=== PATIENT | male | born 1985 | race Caucasian/White ===

== ENCOUNTER 2016-09-30 15:37 | Emergency (ER) | payer OTHER ==
[~2016-09-30 15:37] MED LIST: CLON0.5T PO; FLUO20CA9 PO; GABA300C3 PO; HYDR-4274 PO; LEXA1TAB2 PO; XANA0.25 PO; XANA0.5T PO
[2016-09-30] MEDS ORDERED: MORPHINE 10 MG/ML 1ML VIAL As Ordered ONE (17:00)
--- NOTE | 2016-09-30 17:08 | REP ---
Left hand four views: There is soft tissue edema over the dorsum. There is no fracture or dislocation. No calcifications or foreign bodies. Signed by José Luis Gary MD 09/30/2016 04:59 P
--- NOTE | 2016-09-30 18:00 | EDDOCDS ---
Physician Documentation [facility] Name: Abraham Spencer Age: 31 yrs Sex: Male : 1985 Arrival Date: 09/30/2016 Time: 15:37 Bed I8 / 16 Private MD: Disposition: 09/30/16 17:43 Discharged to Home/Self Care. Impression: Crushing injury of hand - left, Contusion of left hand. - Condition is Stable. - Discharge Instructions: Elastic Bandage and RICE, Hand Contusion, Crush Injury, Fingers or Toes. - Prescriptions for oxycodone 5 mg Oral Tablet - take 1 tablet by ORAL route every 4 hours As needed MDD: 6 tabs; 20 tablet. - Medication Reconciliation, Local Pharmacy Hours form. - Follow up: Your own Physician; When: 1 week; Reason: Recheck today's complaints, Continuance of care, If not improving. - Problem is new. - Symptoms have improved. Historical: - Allergies: no known allergies; - Home Meds: 1. clonazepam 0.5 mg Oral tab 1 tab 2 times per day 2. Prozac 40 mg Oral cap 1 cap once daily 3. Tylenol 325 mg Oral tab 1 tab every 4 hours (Last dose: 09/30/2016 14:00) - PMHx: Anxiety; Cleft Palate; collapsed lung; Depression; Seizure Disorder; - PSHx: Chest Tube- Left; cleft palate repair; - Social history: Smoking status: Patient uses tobacco products, heavy tobacco smoker. No barriers to communication noted, The patient speaks fluent Nepali, Speaks appropriately for age. - Family history: Not pertinent. - : The pt / caregiver states he / she is not on anticoagulants. Home medication list is obtained from the patient. - Exposure Risk Screening:: None identified. Vital Signs: 09/30 15:42 BP 143 / 77; Pulse 98; Resp 16; Temp 98.9; Pulse Ox 99% ; Weight 68.04 kg / 150 lbs; elp Height 5 ft. 1 in. (154.94 cm); 17:23 BP 122 / 73; Pulse 92; Resp 18; Temp 98.0; Pulse Ox 98% ; Pain 8/10; jam1 15:42 Body Mass Index 28.34 (68.04 kg, 154.94 cm) el MDM: 16:46 morphine 5 mg IM once ordered. le 16:49 Hand, Complete Ordered. EDMS 17:48 Financial registration complete. ks16 17:54 Mac Wrap ordered. jc4 Administered Medications: 17:04 Drug: morphine 5 mg [morphine 10 mg/mL injection solution (0.5 mL)] Route: IM; Site: ck1 right deltoid; Signatures: Dispatcher [employer] EDAZ Courtney Hearn RN RN ck1 Josy Dumont, CONCRETE LABORER CONCRETE LABORER Anna Valentine RN RN hs1 April Perez RN RN jc4 Catherine Shelton, Reg Reg ks16 MTDD
--- NOTE | 2016-09-30 18:00 | EDDOCDS ---
Nurse's Notes [facility] Name: Abraham Spencer Age: 31 yrs Sex: Male : 1985 Arrival Date: 09/30/2016 Time: 15:37 Bed I8 / 16 Private MD: Diagnosis: Crushing injury of hand-left;Contusion of left hand Presentation: 09/30 15:53 Presenting complaint: Patient states: did not answer on first call to triage. hs1 16:10 Presenting complaint: answered from outside where patient was smoking. Patient had a hs1 cinder block accidentally fall on him. Adult Sepsis Screening: The patient does not have new or worsening altered mentation. Patient's respiratory rate is less than 22. Systolic blood pressure is greater than 100. Patient has a qSOFA score of 0- Negative Sepsis Screen. Suicide/Homicide risk assessment- the patient denies having any suicidal and/or homicidal ideations and does not present with any other emotional, behavioral or mental health complaints. Status: Patient is not a ground services instructor or dependent. Transition of care: patient was not received from another setting of care. 16:10 Acuity: ZACK Level 4 hs1 16:14 Method Of Arrival: Ambulance hs1 Triage Assessment: 16:13 General: Appears uncomfortable, Behavior is appropriate for age, cooperative. Pain: hs1 Location: left hand Pain currently is 9 out of 10 on a pain scale. HIV screening NA for this visit Offered previously. Musculoskeletal: Range of motion limited in MCP of left ring finger, MCP of left middle finger and MCP of left index finger Swelling present in left hand. Injury Description: Crush injury sustained to left hand. Historical: - Allergies: no known allergies; - Home Meds: 1. clonazepam 0.5 mg Oral tab 1 tab 2 times per day 2. Prozac 40 mg Oral cap 1 cap once daily 3. Tylenol 325 mg Oral tab 1 tab every 4 hours (Last dose: 09/30/2016 14:00) - PMHx: Anxiety; Cleft Palate; collapsed lung; Depression; Seizure Disorder; - PSHx: Chest Tube- Left; cleft palate repair; - Social history: Smoking status: Patient uses tobacco products, heavy tobacco smoker. No barriers to communication noted, The patient speaks fluent German, Speaks appropriately for age. - Family history: Not pertinent. - : The pt / caregiver states he / she is not on anticoagulants. Home medication list is obtained from the patient. - Exposure Risk Screening:: None identified. Screenin:04 Screening information is obtained from the patient. Fall risk: No risks identified. ck1 Assistance ADL's: requires no assistance with activities of daily living. Abuse/DV Screen: The patient / caregiver reports he/she is: not in a situation that causes fear, pain or injury. Nutritional screening: No deficits noted. Advance Directives: Currently, there is no health care proxy. home support is adequate. Assessment: 17:04 General: Appears in no apparent distress, comfortable, Behavior is appropriate for age, ck1 cooperative. Pain: Location: left hand Pain currently is 10 out of 10 on a pain scale. Neurological: Level of Consciousness is awake, alert, obeys commands. Derm: Skin is pink, warm & dry. Musculoskeletal: Circulation, motion, and sensation intact Range of motion intact in all extremities. Vital Signs: 15:42 BP 143 / 77; Pulse 98; Resp 16; Temp 98.9; Pulse Ox 99% ; Weight 68.04 kg; Height 5 ft. elp 1 in. (154.94 cm); 17:23 BP 122 / 73; Pulse 92; Resp 18; Temp 98.0; Pulse Ox 98% ; Pain 8/10; jam1 15:42 Body Mass Index 28.34 (68.04 kg, 154.94 cm) el Vitals: 15:42 Log In Time N/A - ambulance arrival. elp ED Course: 15:41 Patient visited by Li Alexander PCA. elp 15:41 Patient moved to Waiting elp 15:42 Patient moved to Pre RCE elp 16:11 Triage Initiated hs1 16:36 [facility] le 16:36 Patient moved to I8 / 16 kcs 16:39 Patient visited by Courtney Hearn,DAVID. ck1 16:40 Patient visited by Josy Dumont FNP. le 16:40 Patient visited by Josy Dumont FNP. le 17:03 Patient visited by Courtney Hearn,DAVID. ck1 17:04 The patient / caregiver is instructed regarding the plan of care and ED course. ck1 17:04 No IV's were initiated during this patient's visit. No procedures done that require ck1 assistance. 17:20 Hand, Complete Returned. EDMS 17:42 Your own Physician is Referral Physician. michelle 17:50 Shun Estrada DO is Attending Physician. cs11 17:54 Mac wrap to left hand. Patient has positive distal pulse, brisk capillary refill, and jc4 positive sensation after application. Administered Medications: 17:04 Drug: morphine 5 mg [morphine 10 mg/mL injection solution (0.5 mL)] Route: IM; Site: ck1 right deltoid; Order Results: Radiology Order: Hand, Complete Test: Hand, Complete REASON FOR EXAMINATION: crush inj, metacarpals;Trauma; Left hand four views:; ; There is soft tissue edema over the dorsum.; ; There is no fracture or dislocation. No calcifications or foreign bodies.; ; ; Signed by; José Luis Gary MD 09/30/2016 04:59 P; Outcome: 17:43 Discharge ordered by Provider. le 17:55 Discharge Assessment: Patient awake, alert and oriented x 3. No cognitive and/or jc4 functional deficits noted. Patient verbalized understanding of disposition instructions. patient administered narcotics - yes. Pt provided with safe discharge. The following High Risk Discharge criteria are identified: None. Discharged to home ambulatory, via [place]. Condition: stable. Discharge instructions given to patient, Instructed on discharge instructions, follow up and referral plans. medication usage, no driving heavy equipment, Demonstrated understanding of instructions, medications, Pt was receptive of discharge instructions/ teaching. No special radiology studies were completed. Property :Personal belongings accompany Pt. 17:59 Patient left the ED. jc4 Signatures: Dispatcher [employer] EDNE Malena Neil RN RN Krista Rosa, PACK TRAIN DRIVER PACK TRAIN DRIVER jam1 Courtney HearnRN RN ck1 Josy uDmont, DISTRIBUTION CLERK DISTRIBUTION CLERK Anna Valentine RN RN hs1 April Perez RN RN jc4 Shun Estrada DO DO cs11 Patchen, Li, PACK TRAIN DRIVER PACK TRAIN DRIVER elp Corrections: (The following items were deleted from the chart) 16:14 16:10 Method Of Arrival: Walkin/Carried/Asstd hs1 hs1 MTDD
--- NOTE | 2016-10-02 19:01 | EDDOCDS ---
Nurse's Notes [facility] Name: Abraham Spencer Age: 31 yrs Sex: Male : 1985 Arrival Date: 09/30/2016 Time: 15:37 Bed I8 / 16 Private MD: Diagnosis: Crushing injury of hand-left;Contusion of left hand Presentation: 09/30 15:53 Presenting complaint: Patient states: did not answer on first call to triage. hs1 16:10 Presenting complaint: answered from outside where patient was smoking. Patient had a hs1 cinder block accidentally fall on him. Adult Sepsis Screening: The patient does not have new or worsening altered mentation. Patient's respiratory rate is less than 22. Systolic blood pressure is greater than 100. Patient has a qSOFA score of 0- Negative Sepsis Screen. Suicide/Homicide risk assessment- the patient denies having any suicidal and/or homicidal ideations and does not present with any other emotional, behavioral or mental health complaints. Status: Patient is not a tax services intern or dependent. Transition of care: patient was not received from another setting of care. 16:10 Acuity: ZACK Level 4 hs1 16:14 Method Of Arrival: Ambulance hs1 Triage Assessment: 16:13 General: Appears uncomfortable, Behavior is appropriate for age, cooperative. Pain: hs1 Location: left hand Pain currently is 9 out of 10 on a pain scale. HIV screening NA for this visit Offered previously. Musculoskeletal: Range of motion limited in MCP of left ring finger, MCP of left middle finger and MCP of left index finger Swelling present in left hand. Injury Description: Crush injury sustained to left hand. Historical: - Allergies: no known allergies; - Home Meds: 1. clonazepam 0.5 mg Oral tab 1 tab 2 times per day 2. Prozac 40 mg Oral cap 1 cap once daily 3. Tylenol 325 mg Oral tab 1 tab every 4 hours (Last dose: 09/30/2016 14:00) - PMHx: Anxiety; Cleft Palate; collapsed lung; Depression; Seizure Disorder; - PSHx: Chest Tube- Left; cleft palate repair; - Social history: Smoking status: Patient uses tobacco products, heavy tobacco smoker. No barriers to communication noted, The patient speaks fluent Namibian, Speaks appropriately for age. - Family history: Not pertinent. - : The pt / caregiver states he / she is not on anticoagulants. Home medication list is obtained from the patient. - Exposure Risk Screening:: None identified. Screenin:04 Screening information is obtained from the patient. Fall risk: No risks identified. ck1 Assistance ADL's: requires no assistance with activities of daily living. Abuse/DV Screen: The patient / caregiver reports he/she is: not in a situation that causes fear, pain or injury. Nutritional screening: No deficits noted. Advance Directives: Currently, there is no health care proxy. home support is adequate. Assessment: 17:04 General: Appears in no apparent distress, comfortable, Behavior is appropriate for age, ck1 cooperative. Pain: Location: left hand Pain currently is 10 out of 10 on a pain scale. Neurological: Level of Consciousness is awake, alert, obeys commands. Derm: Skin is pink, warm & dry. Musculoskeletal: Circulation, motion, and sensation intact Range of motion intact in all extremities. Vital Signs: 15:42 BP 143 / 77; Pulse 98; Resp 16; Temp 98.9; Pulse Ox 99% ; Weight 68.04 kg; Height 5 ft. elp 1 in. (154.94 cm); 17:23 BP 122 / 73; Pulse 92; Resp 18; Temp 98.0; Pulse Ox 98% ; Pain 8/10; jam1 15:42 Body Mass Index 28.34 (68.04 kg, 154.94 cm) el Vitals: 15:42 Log In Time N/A - ambulance arrival. elp ED Course: 15:41 Patient visited by Li Alexander PCA. elp 15:41 Patient moved to Waiting elp 15:42 Patient moved to Pre RCE elp 16:11 Triage Initiated hs1 16:36 [facility] le 16:36 Patient moved to I8 / 16 kcs 16:39 Patient visited by Courtney Hearn,DAVID. ck1 16:40 Patient visited by Josy Dumont FNP. le 16:40 Patient visited by Josy Dumont FNP. le 17:03 Patient visited by Courtney Hearn,DAVID. ck1 17:04 The patient / caregiver is instructed regarding the plan of care and ED course. ck1 17:04 No IV's were initiated during this patient's visit. No procedures done that require ck1 assistance. 17:20 Hand, Complete Returned. EDMS 17:42 Your own Physician is Referral Physician. le 17:50 Shun Estrada DO is Attending Physician. cs11 17:54 Mac wrap to left hand. Patient has positive distal pulse, brisk capillary refill, and jc4 positive sensation after application. 20:13 [facility] Payment Agreement was scanned into [employer] and attached to record. ks16 10/01 13:39 T-Sheet-- Draft Copy was scanned into [employer] and attached to record. gb Administered Medications: 09/30 17:04 Drug: morphine 5 mg [morphine 10 mg/mL injection solution (0.5 mL)] Route: IM; Site: ck1 right deltoid; Order Results: Radiology Order: Hand, Complete Test: Hand, Complete REASON FOR EXAMINATION: crush inj, metacarpals;Trauma; Left hand four views:; ; There is soft tissue edema over the dorsum.; ; There is no fracture or dislocation. No calcifications or foreign bodies.; ; ; Signed by; José Luis Gary MD 09/30/2016 04:59 P; Outcome: 17:43 Discharge ordered by Provider. le 17:55 Discharge Assessment: Patient awake, alert and oriented x 3. No cognitive and/or jc4 functional deficits noted. Patient verbalized understanding of disposition instructions. patient administered narcotics - yes. Pt provided with safe discharge. The following High Risk Discharge criteria are identified: None. Discharged to home ambulatory, via [place]. Condition: stable. Discharge instructions given to patient, Instructed on discharge instructions, follow up and referral plans. medication usage, no driving heavy equipment, Demonstrated understanding of instructions, medications, Pt was receptive of discharge instructions/ teaching. No special radiology studies were completed. Property :Personal belongings accompany Pt. 17:59 Patient left the ED. jc4 Signatures: Dispatcher [employer] EDMS Malena Neil RN RN Krista Rosa, FACIAL OPERATOR FACIAL OPERATOR jam1 Chely Henriquez, Reg Reg Courtney VermaRN RN ck1 Josy Dumont, RADIO SCRIPT WRITER RADIO SCRIPT WRITER Anna Valentine RN RN hs1 April Perez RN RN jc4 Shun Estrada DO DO cs11 Li Alexander, FACIAL OPERATOR FACIAL OPERATOR elp Catherine Shelton, Reg Reg ks16 Corrections: (The following items were deleted from the chart) 16:14 16:10 Method Of Arrival: Walkin/Carried/Asstd hs1 hs1 Chart Complete MTDD
--- NOTE | 2016-10-02 19:01 | EDDOCDS ---
Physician Documentation [facility] Name: Abraham Spencer Age: 31 yrs Sex: Male : 1985 Arrival Date: 09/30/2016 Time: 15:37 Bed I8 / 16 Private MD: Disposition: 09/30/16 17:43 Discharged to Home/Self Care. Impression: Crushing injury of hand - left, Contusion of left hand. - Condition is Stable. - Discharge Instructions: Elastic Bandage and RICE, Hand Contusion, Crush Injury, Fingers or Toes. - Prescriptions for oxycodone 5 mg Oral Tablet - take 1 tablet by ORAL route every 4 hours As needed MDD: 6 tabs; 20 tablet. - Medication Reconciliation, Local Pharmacy Hours form. - Follow up: Your own Physician; When: 1 week; Reason: Recheck today's complaints, Continuance of care, If not improving. - Problem is new. - Symptoms have improved. Historical: - Allergies: no known allergies; - Home Meds: 1. clonazepam 0.5 mg Oral tab 1 tab 2 times per day 2. Prozac 40 mg Oral cap 1 cap once daily 3. Tylenol 325 mg Oral tab 1 tab every 4 hours (Last dose: 09/30/2016 14:00) - PMHx: Anxiety; Cleft Palate; collapsed lung; Depression; Seizure Disorder; - PSHx: Chest Tube- Left; cleft palate repair; - Social history: Smoking status: Patient uses tobacco products, heavy tobacco smoker. No barriers to communication noted, The patient speaks fluent Ukrainian, Speaks appropriately for age. - Family history: Not pertinent. - : The pt / caregiver states he / she is not on anticoagulants. Home medication list is obtained from the patient. - Exposure Risk Screening:: None identified. Vital Signs: 09/30 15:42 BP 143 / 77; Pulse 98; Resp 16; Temp 98.9; Pulse Ox 99% ; Weight 68.04 kg / 150 lbs; elp Height 5 ft. 1 in. (154.94 cm); 17:23 BP 122 / 73; Pulse 92; Resp 18; Temp 98.0; Pulse Ox 98% ; Pain 8/10; jam1 15:42 Body Mass Index 28.34 (68.04 kg, 154.94 cm) el MDM: 16:46 morphine 5 mg IM once ordered. le 16:49 Hand, Complete Ordered. EDND 17:48 Financial registration complete. [facility] 17:54 Mac Wrap ordered. jc4 20:13 [facility] Payment Agreement was scanned into Abzen[employer] and attached to record. pr10/01 13:39 T-Sheet-- Draft Copy was scanned into Abzena and attached to record. gb Administered Medications: 09/30 17:04 Drug: morphine 5 mg [morphine 10 mg/mL injection solution (0.5 mL)] Route: IM; Site: ck1 right deltoid; Signatures: Dispatcher Med[employer] EDMS Chely Henriquez, Reg Reg gb Courtney HearnRN RN ck1 Josy Dumont, CHARACTER IMPERSONATOR CHARACTER IMPERSONATOR Anna Valentine RN RN hs1 April Perez RN RN jc4 Catherine Shelton, Reg Reg ks16 The chart was reviewed and I authenticate all verbal orders and agree with the evaluation and treatment provided.Attachments: 20:13 [facility] Payment Agreement [facility] 10/01 13:39 T-Sheet-- Draft Copy gb Chart Complete MTDD
--- NOTE | 2016-10-02 19:01 | EDDOCDS ---
Physician Documentation [facility] Name: Abraham Spencer Age: 31 yrs Sex: Male : 1985 Arrival Date: 09/30/2016 Time: 15:37 Bed I8 / 16 Private MD: Disposition: 09/30/16 17:43 Discharged to Home/Self Care. Impression: Crushing injury of hand - left, Contusion of left hand. - Condition is Stable. - Discharge Instructions: Elastic Bandage and RICE, Hand Contusion, Crush Injury, Fingers or Toes. - Prescriptions for oxycodone 5 mg Oral Tablet - take 1 tablet by ORAL route every 4 hours As needed MDD: 6 tabs; 20 tablet. - Medication Reconciliation, Local Pharmacy Hours form. - Follow up: Your own Physician; When: 1 week; Reason: Recheck today's complaints, Continuance of care, If not improving. - Problem is new. - Symptoms have improved. Historical: - Allergies: no known allergies; - Home Meds: 1. clonazepam 0.5 mg Oral tab 1 tab 2 times per day 2. Prozac 40 mg Oral cap 1 cap once daily 3. Tylenol 325 mg Oral tab 1 tab every 4 hours (Last dose: 09/30/2016 14:00) - PMHx: Anxiety; Cleft Palate; collapsed lung; Depression; Seizure Disorder; - PSHx: Chest Tube- Left; cleft palate repair; - Social history: Smoking status: Patient uses tobacco products, heavy tobacco smoker. No barriers to communication noted, The patient speaks fluent Armenian, Speaks appropriately for age. - Family history: Not pertinent. - : The pt / caregiver states he / she is not on anticoagulants. Home medication list is obtained from the patient. - Exposure Risk Screening:: None identified. Vital Signs: 09/30 15:42 BP 143 / 77; Pulse 98; Resp 16; Temp 98.9; Pulse Ox 99% ; Weight 68.04 kg / 150 lbs; elp Height 5 ft. 1 in. (154.94 cm); 17:23 BP 122 / 73; Pulse 92; Resp 18; Temp 98.0; Pulse Ox 98% ; Pain 8/10; jam1 15:42 Body Mass Index 28.34 (68.04 kg, 154.94 cm) el MDM: 16:46 morphine 5 mg IM once ordered. le 16:49 Hand, Complete Ordered. EDKS 17:48 Financial registration complete. [facility] 17:54 Mac Wrap ordered. jc4 20:13 [facility] Payment Agreement was scanned into [employer] and attached to record. nm10/01 13:39 T-Sheet-- Draft Copy was scanned into [employer] and attached to record. gb Administered Medications: 09/30 17:04 Drug: morphine 5 mg [morphine 10 mg/mL injection solution (0.5 mL)] Route: IM; Site: ck1 right deltoid; Signatures: Dispatcher [employer] EDMS Chely Henriquez, Reg Reg gb Courtney HearnRN RN ck1 Josy Dumont, LACE ROLLER LACE ROLLER Anna Valentine RN RN hs1 April Perez RN RN jc4 Catherine Shelton, Reg Reg ks16 The chart was reviewed and I authenticate all verbal orders and agree with the evaluation and treatment provided.Attachments: 20:13 [facility] Payment Agreement [facility] 10/01 13:39 T-Sheet-- Draft Copy gb Chart Complete MTDD
== END 2016-09-30 17:59 | disposition home or self-care (01) ==
LOC: M ED 15:37
DX: S67.22XA Crushing injury of left hand, initial encounter (principal); S60.222A Contusion of left hand, initial encounter; W22.8XXA Striking against or struck by other objects, initial encounter; Y92.019 Unspecified place in single-family (private) house as the place of occurrence of the external cause; Y93.89 Activity, other specified; Y99.8 Other external cause status; F41.9 Anxiety disorder, unspecified; Q35.9 Cleft palate, unspecified; F32.9 Major depressive disorder, single episode, unspecified; G40.909 Epilepsy, unspecified, not intractable, without status epilepticus; F17.210 Nicotine dependence, cigarettes, uncomplicated; Z79.899 Other long term (current) drug therapy

== ENCOUNTER 2016-09-30 23:47 | Emergency (ER) | payer OTHER ==
[2016-10-01] MEDS ORDERED: oxyCODONE 5MG TAB As Ordered ONE (01:48)
--- NOTE | 2016-10-01 02:47 | EDDOCDS ---
Nurse's Notes [facility] Name: Abraham Spencer Age: 31 yrs Sex: Male : 1985 Arrival Date: 09/30/2016 Time: 23:47 Bed D1 Private MD: Yasmany Salas Diagnosis: Contusion of left hand Presentation: 09/30 23:56 Presenting complaint: Patient states: seen here earlier and diagnosed with chipped dsf fractures. Since discharge pt states the swelling and pain has gotten worse. pt did not picker and packer pain medication from pharmacy today because he had no ride. Adult Sepsis Screening: The patient does not have new or worsening altered mentation. Patient's respiratory rate is less than 22. Systolic blood pressure is greater than 100. Patient has a qSOFA score of 0- Negative Sepsis Screen. Suicide/Homicide risk assessment- the patient denies having any suicidal and/or homicidal ideations and does not present with any other emotional, behavioral or mental health complaints. Status: Patient is not a services executive or dependent. Transition of care: patient was not received from another setting of care. 23:56 Acuity: ZACK Level 4 dsf 23:56 Method Of Arrival: Walkin/Carried/Asstd dsf Triage Assessment: 23:59 General: Appears in no apparent distress, Behavior is appropriate for age, cooperative. dsf Pain: Location: left hand Pain currently is 9 out of 10 on a pain scale. Quality of pain is described as unbearable. HIV screening NA for this visit Offered previously. Musculoskeletal: redness and swelling to left hand. Historical: - Allergies: Toradol (Vomit); - Home Meds: 1. clonazepam 0.5 mg Oral tab 1 tab 2 times per day (Last dose: 09/30/2016 09:00) 2. Prozac 40 mg Oral cap 1 cap once daily (Last dose: 09/30/2016 07:00) 3. Tylenol 325 mg Oral tab 1 tab every 4 hours (Last dose: Unknown) 4. oxycodone 5 mg Oral tab 1 tab every 4 hours unable to picker and packer from the pharmacy - PMHx: Anxiety; Cleft Palate; collapsed lung; Depression; Seizure Disorder; - PSHx: Chest Tube- Left; cleft palate repair; - Social history: Smoking status: Patient uses tobacco products, current every day smoker. No barriers to communication noted, The patient speaks fluent Vietnamese, Speaks appropriately for age. - Family history: Not pertinent. - : The pt / caregiver states he / she is not on anticoagulants. Home medication list is obtained from the patient. - Exposure Risk Screening:: None identified. Screenin 01:57 Screening information is obtained from the patient. Fall risk: No risks identified. mlc Assistance ADL's: requires no assistance with activities of daily living. Abuse/DV Screen: The patient / caregiver reports he/she is: not in a situation that causes fear, pain or injury. Nutritional screening: No deficits noted. Advance Directives: Currently, there is no health care proxy. home support is adequate. Assessment: 01:57 General: Appears in no apparent distress, comfortable, Behavior is cooperative. Pain: mlc Location: left hand. Neurological: Level of Consciousness is awake, alert, Oriented to person, place, time. Respiratory: Airway is patent Respiratory effort is even, unlabored, Respiratory pattern is regular. Derm: Skin is pink, warm & dry. Swollen area noted on dorsum of left hand. Musculoskeletal: Circulation, motion, and sensation intact Capillary refill < 3 seconds in left fingers. Vital Signs: 09/30 23:49 BP 127 / 78; Pulse 99; Resp 18 S; Temp 98.3(O); Pulse Ox 97% on R/A; Weight 68.95 kg gr2 (R); Height 5 ft. 2 in. (157.48 cm) (R); Pain 8/10; 23:49 Body Mass Index 27.80 (68.95 kg, 157.48 cm) gr2 Vitals: 23:49 Log In Time: September 30, 2016 at 23:49. gr2 ED Course: 23:49 Patient visited by Dread Stewart. gr2 23:49 Yasmany Salas is Private Physician. gr2 23:49 Patient moved to Waiting gr2 23:50 Patient visited by Dread Stewart. gr2 23:50 Patient moved to Pre RCE gr2 23:57 Triage Initiated dsf 02 00:17 Patient moved to MTA Wait dsf 01:18 [facility] Payment Agreement was scanned into [employer] and attached to record. hs2 01:21 Patient moved to I5 / M5 ajs 01:35 Andrew Tello RPA-C is PHCP. ck7 01:35 Weston Kurtz MD is Attending Physician. ck7 01:35 Patient visited by Andrew Tello RPA-C. ck7 01:43 [facility] is Referral Physician. ck7 01:57 The patient / caregiver is instructed regarding the plan of care and ED course. mlc 01:57 No IV's were initiated during this patient's visit. No procedures done that require mlc assistance. 02:21 Patient moved to D1 mlc Administered Medications: 01:50 Drug: oxyCODONE 5 mg [oxycodone 5 mg tablet (1 tabs)] Route: PO; mlc 02:45 Follow up: Response: Med's dispensed home mlc 02:44 CANCELLED (Other Intervention Used): oxyCODONE 5 mg PO once ck7 Order Results: There are currently no results for this order. Outcome: 01:43 Discharge ordered by Provider. ck7 01:57 Discharge Assessment: Patient awake, alert and oriented x 3. No cognitive and/or mlc functional deficits noted. Patient verbalized understanding of disposition instructions. patient administered narcotics - yes. Pt provided with safe discharge. The following High Risk Discharge criteria are identified: None. Discharged to home ambulatory. Condition: stable. Discharge instructions given to patient, Instructed on discharge instructions, follow up and referral plans. Demonstrated understanding of instructions, Pt was receptive of discharge instructions/ teaching. No special radiology studies were completed. Property sent home with patient. 02:45 [place] left the ED. [facility] [place] Signatures: Darlene Alvarado RN RN Meghna Dumas Christopher, RPA-C [facility]-Cck7 Dread Stewart gr2 Adina Fleming RN RN Sherie Hines, Reg Reg hs2 Corrections: (The following items were deleted from the chart) 00:11 02/07 23:56 Presenting complaint: Patient states: seen here earlier and diagnosed with dsf chipped fractures. Since discharge pt states the swelling and pain has gotten worse dsf MTDD
--- NOTE | 2016-10-01 02:47 | EDDOCDS ---
Physician Documentation [facility] Name: Abraham Spencer Age: 31 yrs Sex: Male : 1985 Arrival Date: 09/30/2016 Time: 23:47 Bed D1 Private MD: Yasmany Salas Disposition: 10/01/16 01:43 Discharged to Home/Self Care. Impression: Contusion of left hand. - Condition is Stable. - Discharge Instructions: Hand Contusion. - Medication Reconciliation, Local Pharmacy Hours, Work Release Form - 2 day form. - Follow up: [facility]; When: 1 - 2 days; Reason: Recheck today's complaints, Continuance of care. - Problem is new. - Symptoms have improved. - Notes: USE THE PAIN MEDICATION THAT WAS PRESCRIBED TO YOU EARLIER INSTRUCTED, FLAT OPTICAL ELEMENT MAKER WITH SCRIPT AT THE PHARMACY TOMORROW, USE THE TALAT WRAP THAT WAS GIVEN TO YOU, USE ICE TO THE AREA, FOLLOW UP WITH [facility] Historical: - Allergies: Toradol (Vomit); - Home Meds: 1. clonazepam 0.5 mg Oral tab 1 tab 2 times per day (Last dose: 09/30/2016 09:00) 2. Prozac 40 mg Oral cap 1 cap once daily (Last dose: 09/30/2016 07:00) 3. Tylenol 325 mg Oral tab 1 tab every 4 hours (Last dose: Unknown) 4. oxycodone 5 mg Oral tab 1 tab every 4 hours unable to fish bait picker from the pharmacy - PMHx: Anxiety; Cleft Palate; collapsed lung; Depression; Seizure Disorder; - PSHx: Chest Tube- Left; cleft palate repair; - Social history: Smoking status: Patient uses tobacco products, current every day smoker. No barriers to communication noted, The patient speaks fluent French, Speaks appropriately for age. - Family history: Not pertinent. - : The pt / caregiver states he / she is not on anticoagulants. Home medication list is obtained from the patient. - Exposure Risk Screening:: None identified. Vital Signs: 09/30 23:49 BP 127 / 78; Pulse 99; Resp 18 S; Temp 98.3(O); Pulse Ox 97% on R/A; Weight 68.95 kg / gr2 152.01 lbs (R); Height 5 ft. 2 in. (157.48 cm) (R); Pain 8/10; 23:49 Body Mass Index 27.80 (68.95 kg, 157.48 cm) gr2 MDM: 10/01 01:18 [facility] Payment Agreement was scanned into [employer] and attached to record. hs2 01:37 Financial registration complete. hs2 02:44 oxyCODONE 5 mg PO once; DISPENSE TO GO HOME WITH ordered. ck7 Administered Medications: 01:50 Drug: oxyCODONE 5 mg [oxycodone 5 mg tablet (1 tabs)] Route: PO; mlc 02:45 Follow up: Response: Med's dispensed home mlc 02:44 CANCELLED (Other Intervention Used): oxyCODONE 5 mg PO once ck7 Signatures: Darlene AlvaradoRN RN Andrew Scales RPA-C RPA-Cck7 Adina FlemingRN RN mlc Sherie Vines, Reg Reg hs2 The chart was reviewed and I authenticate all verbal orders and agree with the evaluation and treatment provided.Corrections: (The following items were deleted from the chart) 02:44 01:42 oxyCODONE 5 mg PO once ordered. ck7 ck7 02:44 02:44 oxyCODONE 5 mg PO once ordered. ck7 ck7 Attachments: 01:18 [facility] Payment Agreement hs2 MTDD
--- NOTE | 2016-10-03 03:46 | EDDOCDS ---
Physician Documentation [facility] Name: Abraham Spencer Age: 31 yrs Sex: Male : 1985 Arrival Date: 09/30/2016 Time: 23:47 Bed D1 Private MD: Yasmany Salas Disposition: 10/01/16 01:43 Discharged to Home/Self Care. Impression: Contusion of left hand. - Condition is Stable. - Discharge Instructions: Hand Contusion. - Medication Reconciliation, Local Pharmacy Hours, Work Release Form - 2 day form. - Follow up: [facility]; When: 1 - 2 days; Reason: Recheck today's complaints, Continuance of care. - Problem is new. - Symptoms have improved. - Notes: USE THE PAIN MEDICATION THAT WAS PRESCRIBED TO YOU EARLIER INSTRUCTED, ELEPHANT KEEPER WITH SCRIPT AT THE PHARMACY TOMORROW, USE THE TALAT WRAP THAT WAS GIVEN TO YOU, USE ICE TO THE AREA, FOLLOW UP WITH [facility] Historical: - Allergies: Toradol (Vomit); - Home Meds: 1. clonazepam 0.5 mg Oral tab 1 tab 2 times per day (Last dose: 09/30/2016 09:00) 2. Prozac 40 mg Oral cap 1 cap once daily (Last dose: 09/30/2016 07:00) 3. Tylenol 325 mg Oral tab 1 tab every 4 hours (Last dose: Unknown) 4. oxycodone 5 mg Oral tab 1 tab every 4 hours unable to slat pickler from the pharmacy - PMHx: Anxiety; Cleft Palate; collapsed lung; Depression; Seizure Disorder; - PSHx: Chest Tube- Left; cleft palate repair; - Social history: Smoking status: Patient uses tobacco products, current every day smoker. No barriers to communication noted, The patient speaks fluent Gibraltarian, Speaks appropriately for age. - Family history: Not pertinent. - : The pt / caregiver states he / she is not on anticoagulants. Home medication list is obtained from the patient. - Exposure Risk Screening:: None identified. Vital Signs: 09/30 23:49 BP 127 / 78; Pulse 99; Resp 18 S; Temp 98.3(O); Pulse Ox 97% on R/A; Weight 68.95 kg / gr2 152.01 lbs (R); Height 5 ft. 2 in. (157.48 cm) (R); Pain 8/10; 23:49 Body Mass Index 27.80 (68.95 kg, 157.48 cm) gr2 MDM: 10/01 01:18 [facility] Payment Agreement was scanned into InM[employer] and attached to record. hs2 01:37 Financial registration complete. hs2 02:44 oxyCODONE 5 mg PO once; DISPENSE TO GO HOME WITH ordered. ck7 13:39 T-Sheet-- Draft Copy was scanned into InM[employer] and attached to record. gb Administered Medications: 01:50 Drug: oxyCODONE 5 mg [oxycodone 5 mg tablet (1 tabs)] Route: PO; mlc 02:45 Follow up: Response: Med's dispensed home mlc 02:44 CANCELLED (Other Intervention Used): oxyCODONE 5 mg PO once ck7 Signatures: Chely Henriquez, Reg Reg gb Darlene Alvarado RN RN dsf Andrew Tello, RPA-C RPA-Cck7 Adina Fleming RN RN [facility] Sherie Vines, Reg Reg hs2 The chart was reviewed and I authenticate all verbal orders and agree with the evaluation and treatment provided.Corrections: (The following items were deleted from the chart) 02:44 01:42 oxyCODONE 5 mg PO once ordered. 7 02:44 02:44 oxyCODONE 5 mg PO once ordered. 7 ck7 Attachments: 01:18 [facility] Payment Agreement hs2 13:39 T-Sheet-- Draft Copy gb Chart Complete MTDD
--- NOTE | 2016-10-03 03:46 | EDDOCDS ---
Physician Documentation [facility] Name: Abraham Spencer Age: 31 yrs Sex: Male : 1985 Arrival Date: 09/30/2016 Time: 23:47 Bed D1 Private MD: Yasmany Salas Disposition: 10/01/16 01:43 Discharged to Home/Self Care. Impression: Contusion of left hand. - Condition is Stable. - Discharge Instructions: Hand Contusion. - Medication Reconciliation, Local Pharmacy Hours, Work Release Form - 2 day form. - Follow up: [facility]; When: 1 - 2 days; Reason: Recheck today's complaints, Continuance of care. - Problem is new. - Symptoms have improved. - Notes: USE THE PAIN MEDICATION THAT WAS PRESCRIBED TO YOU EARLIER INSTRUCTED, LENS FINISHER WITH SCRIPT AT THE PHARMACY TOMORROW, USE THE TALAT WRAP THAT WAS GIVEN TO YOU, USE ICE TO THE AREA, FOLLOW UP WITH [facility] Historical: - Allergies: Toradol (Vomit); - Home Meds: 1. clonazepam 0.5 mg Oral tab 1 tab 2 times per day (Last dose: 09/30/2016 09:00) 2. Prozac 40 mg Oral cap 1 cap once daily (Last dose: 09/30/2016 07:00) 3. Tylenol 325 mg Oral tab 1 tab every 4 hours (Last dose: Unknown) 4. oxycodone 5 mg Oral tab 1 tab every 4 hours unable to sisal picker from the pharmacy - PMHx: Anxiety; Cleft Palate; collapsed lung; Depression; Seizure Disorder; - PSHx: Chest Tube- Left; cleft palate repair; - Social history: Smoking status: Patient uses tobacco products, current every day smoker. No barriers to communication noted, The patient speaks fluent [place], Speaks appropriately for age. - Family history: Not pertinent. - : The pt / caregiver states he / she is not on anticoagulants. Home medication list is obtained from the patient. - Exposure Risk Screening:: None identified. Vital Signs: 09/30 23:49 BP 127 / 78; Pulse 99; Resp 18 S; Temp 98.3(O); Pulse Ox 97% on R/A; Weight 68.95 kg / gr2 152.01 lbs (R); Height 5 ft. 2 in. (157.48 cm) (R); Pain 8/10; 23:49 Body Mass Index 27.80 (68.95 kg, 157.48 cm) gr2 MDM: 10/01 01:18 [facility] Payment Agreement was scanned into Tyba and attached to record. hs2 01:37 Financial registration complete. hs2 02:44 oxyCODONE 5 mg PO once; DISPENSE TO GO HOME WITH ordered. ck7 13:39 T-Sheet-- Draft Copy was scanned into Tyba and attached to record. gb Administered Medications: 01:50 Drug: oxyCODONE 5 mg [oxycodone 5 mg tablet (1 tabs)] Route: PO; mlc 02:45 Follow up: Response: Med's dispensed home mlc 02:44 CANCELLED (Other Intervention Used): oxyCODONE 5 mg PO once ck7 Signatures: Chely Henriquez, Reg Reg gb Darlene Alvarado RN RN dsf Andrew Tello, RPA-C RPA-Cck7 Adina Fleming RN RN [facility] Sherie Vines, Reg Reg hs2 The chart was reviewed and I authenticate all verbal orders and agree with the evaluation and treatment provided.Corrections: (The following items were deleted from the chart) 02:44 01:42 oxyCODONE 5 mg PO once ordered. 7 02:44 02:44 oxyCODONE 5 mg PO once ordered. 7 ck7 Attachments: 01:18 [facility] Payment Agreement hs2 13:39 T-Sheet-- Draft Copy gb Chart Complete MTDD
--- NOTE | 2016-10-03 03:47 | EDDOCDS ---
Nurse's Notes [facility] Name: Abraham Spencer Age: 31 yrs Sex: Male : 1985 Arrival Date: 09/30/2016 Time: 23:47 Bed D1 Private MD: Yasmany Salas Diagnosis: Contusion of left hand Presentation: 09/30 23:56 Presenting complaint: Patient states: seen here earlier and diagnosed with chipped dsf fractures. Since discharge pt states the swelling and pain has gotten worse. 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 Adult Sepsis Screening: The patient does not have new or worsening altered mentation. Patient's respiratory rate is less than 22. Systolic blood pressure is greater than 100. Patient has a qSOFA score of 0- Negative Sepsis Screen. Suicide/Homicide risk assessment- the patient denies having any suicidal and/or homicidal ideations and does not present with any other emotional, behavioral or mental health complaints. Status: Patient is not a guest services attendant or dependent. Transition of care: patient was not received from another setting of care. 23:56 Acuity: ZACK Level 4 dsf 23:56 Method Of Arrival: Walkin/Carried/Asstd dsf Triage Assessment: 23:59 General: Appears in no apparent distress, Behavior is appropriate for age, cooperative. dsf Pain: Location: left hand Pain currently is 9 out of 10 on a pain scale. Quality of pain is described as unbearable. HIV screening NA for this visit Offered previously. Musculoskeletal: redness and swelling to left hand. Historical: - Allergies: Toradol (Vomit); - Home Meds: 1. clonazepam 0.5 mg Oral tab 1 tab 2 times per day (Last dose: 09/30/2016 09:00) 2. Prozac 40 mg Oral cap 1 cap once daily (Last dose: 09/30/2016 07:00) 3. Tylenol 325 mg Oral tab 1 tab every 4 hours (Last dose: Unknown) 4. oxycodone 5 mg Oral tab 1 tab every 4 hours unable to cotton picking machine operator from the pharmacy - PMHx: Anxiety; Cleft Palate; collapsed lung; Depression; Seizure Disorder; - PSHx: Chest Tube- Left; cleft palate repair; - Social history: Smoking status: Patient uses tobacco products, current every day smoker. No barriers to communication noted, The patient speaks fluent Malay, Speaks appropriately for age. - Family history: Not pertinent. - : The pt / caregiver states he / she is not on anticoagulants. Home medication list is obtained from the patient. - Exposure Risk Screening:: None identified. Screenin 01:57 Screening information is obtained from the patient. Fall risk: No risks identified. mlc Assistance ADL's: requires no assistance with activities of daily living. Abuse/DV Screen: The patient / caregiver reports he/she is: not in a situation that causes fear, pain or injury. Nutritional screening: No deficits noted. Advance Directives: Currently, there is no health care proxy. home support is adequate. Assessment: 01:57 General: Appears in no apparent distress, comfortable, Behavior is cooperative. Pain: mlc Location: left hand. Neurological: Level of Consciousness is awake, alert, Oriented to person, place, time. Respiratory: Airway is patent Respiratory effort is even, unlabored, Respiratory pattern is regular. Derm: Skin is pink, warm & dry. Swollen area noted on dorsum of left hand. Musculoskeletal: Circulation, motion, and sensation intact Capillary refill < 3 seconds in left fingers. Vital Signs: 09/30 23:49 BP 127 / 78; Pulse 99; Resp 18 S; Temp 98.3(O); Pulse Ox 97% on R/A; Weight 68.95 kg gr2 (R); Height 5 ft. 2 in. (157.48 cm) (R); Pain 8/10; 23:49 Body Mass Index 27.80 (68.95 kg, 157.48 cm) gr2 Vitals: 23:49 Log In Time: September 30, 2016 at 23:49. gr2 ED Course: 23:49 Patient visited by Dread Stewart. gr2 23:49 Yasmany Salas is Private Physician. gr2 23:49 Patient moved to Waiting gr2 23:50 Patient visited by Dread Stewart. gr2 23:50 Patient moved to Pre RCE gr2 23:57 Triage Initiated dsf 02 00:17 Patient moved to MTA Wait dsf 01:18 COUNTS INCLUDE 234 BEDS AT THE [facility] Payment Agreement was scanned into Hand[employer] and attached to record. hs2 01:21 Patient moved to I5 / M5 ajs 01:35 Andrew Tello RPA-C is PHCP. ck7 01:35 Weston Kurtz MD is Attending Physician. ck7 01:35 Patient visited by Andrew Tello RPA-C. ck7 01:43 [facility] is Referral Physician. ck7 01:57 The patient / caregiver is instructed regarding the plan of care and ED course. mlc 01:57 No IV's were initiated during this patient's visit. No procedures done that require mlc assistance. 02:21 Patient moved to D1 mlc 13:39 T-Sheet-- Draft Copy was scanned into Hand[employer] and attached to record. gb Administered Medications: 01:50 Drug: oxyCODONE 5 mg [oxycodone 5 mg tablet (1 tabs)] Route: PO; mlc 02:45 Follow up: Response: Med's dispensed home mlc 02:44 CANCELLED (Other Intervention Used): oxyCODONE 5 mg PO once ck7 Order Results: There are currently no results for this order. Outcome: 01:43 Discharge ordered by Provider. ck7 01:57 Discharge Assessment: Patient awake, alert and oriented x 3. No cognitive and/or mlc functional deficits noted. Patient verbalized understanding of disposition instructions. patient administered narcotics - yes. Pt provided with safe discharge. The following High Risk Discharge criteria are identified: None. Discharged to home ambulatory. Condition: stable. Discharge instructions given to patient, Instructed on discharge instructions, follow up and referral plans. Demonstrated understanding of instructions, Pt was receptive of discharge instructions/ teaching. No special radiology studies were completed. Property sent home with patient. 02:45 Patient left the ED. [facility] Signatures: Chely Henriquez, Reg Reg gb Darlene AlvaradoRN RN dsf Meghna Guerrero Christopher, RPA-C RPA-Cck7 Dread Stewart gr2 Adina Fleming RN RN [facility] Sherie Vines, Reg Reg hs2 Corrections: (The following items were deleted from the chart) 00:11 0207 23:56 Presenting complaint: Patient states: seen here earlier and diagnosed with dsf chipped fractures. Since discharge pt states the swelling and pain has gotten worse dsf Chart Complete MTDD
== END 2016-10-01 02:45 | disposition home or self-care (01) ==
LOC: M ED 23:47
DX: S60.222D Contusion of left hand, subsequent encounter (principal); W22.8XXD Striking against or struck by other objects, subsequent encounter; Y92.89 Other specified places as the place of occurrence of the external cause; Y93.89 Activity, other specified; Y99.8 Other external cause status; F41.9 Anxiety disorder, unspecified; Q35.9 Cleft palate, unspecified; F32.9 Major depressive disorder, single episode, unspecified; G40.909 Epilepsy, unspecified, not intractable, without status epilepticus; F17.210 Nicotine dependence, cigarettes, uncomplicated; Z79.899 Other long term (current) drug therapy; Z88.8 Allergy status to other drugs, medicaments and biological substances

== ENCOUNTER 2016-10-04 16:41 | Emergency (ER) | payer OTHER ==
[2016-10-04] MEDS ORDERED: NORCO 5/325MG TABLET (BULK) As Ordered ONE (17:48)
--- NOTE | 2016-10-04 17:54 | EDDOCDS ---
Physician Documentation [facility] Name: Abraham Spencer Age: 31 yrs Sex: Male : 1985 Arrival Date: 10/04/2016 Time: 16:41 Bed TR8 Private MD: ANNETTE WEBER Disposition: 10/04/16 17:47 Discharged to Home/Self Care. Impression: Contusion of left hand. - Condition is Stable. - Discharge Instructions: Elastic Bandage and RICE, Hand Contusion. - Medication Reconciliation, Local Pharmacy Hours, Work Release Form - 3 day form. - Follow up: ANNETTE WEBER; When: Call to arrange an appointment; Reason: Recheck today's complaints, Continuance of care. - Problem is new. - Symptoms are unchanged. Historical: - Allergies: Toradol (Vomit); - Home Meds: 1. clonazepam 0.5 mg Oral tab 1 tab 2 times per day 2. oxycodone 5 mg Oral tab 1 tab every 4 hours unable to grape picker from the pharmacy 3. Prozac 40 mg Oral cap 1 cap once daily 4. Tylenol 325 mg Oral tab 1 tab every 4 hours 5. gabapentin 100 mg Oral cap 2 caps daily - PMHx: Anxiety; Cleft Palate; collapsed lung; Depression; Seizure Disorder; - PSHx: Chest Tube- Left; cleft palate repair; - Social history: Smoking status: Patient uses tobacco products, heavy tobacco smoker. No barriers to communication noted, The patient speaks fluent Maori, Speaks appropriately for age. - Family history: Not pertinent. - : The pt / caregiver states he / she is not on anticoagulants. Home medication list is obtained from the patient. - Exposure Risk Screening:: None identified. Vital Signs: 10/04 16:43 BP 128 / 61; Pulse 93; Resp 18; Temp 98.8(O); Pulse Ox 100% on R/A; Weight 68.04 kg / dem1 150 lbs; Height 5 ft. 1 in. (154.94 cm); Pain 9/10; 16:43 Body Mass Index 28.34 (68.04 kg, 154.94 cm) dem1 MDM: 17:46 HYDROcodone-acetaminophen 4 pack- 5 mg-325 mg 1 packets PO Per package directions; mo1 Dispense with patient. 1 po q4h prn for pain ordered. 17:46 Splint Affected Extremity ordered. mo1 Administered Medications: 17:51 Drug: HYDROcodone-acetaminophen 4 pack- 1 packets [hydrocodone 5 mg-acetaminophen 325 ck1 mg tablet (1 tabs)] {Co-Signature: rs3 (Gretchen Carrasco RN).} Route: PO; Signatures: Dick Ardon RN RN mlb1 Courtney Hearn RN RN ck1 Dick Sterling PA PA mo1 Gretchen Carrasco RN rs3 MTDD
--- NOTE | 2016-10-04 17:54 | EDDOCDS ---
Nurse's Notes [facility] Name: Abraham Spencer Age: 31 yrs Sex: Male : 1985 Arrival Date: 10/04/2016 Time: 16:41 Bed TR8 Private MD: ANNETTE WEBER Diagnosis: Contusion of left hand Presentation: 10/04 16:47 Presenting complaint: Patient states: Left hand injury on 09/30/16 here for recheck mlb1 states pain getting worse waking up at night. Adult Sepsis Screening: The patient does not have new or worsening altered mentation. Patient's respiratory rate is less than 22. Systolic blood pressure is greater than 100. Patient has a qSOFA score of 0- Negative Sepsis Screen. Suicide/Homicide risk assessment- the patient denies having any suicidal and/or homicidal ideations and does not present with any other emotional, behavioral or mental health complaints. Status: Patient is not a equipment services associate or dependent. Transition of care: patient was not received from another setting of care. 16:47 Acuity: ZACK Level 4 mlb1 16:47 Method Of Arrival: Walkin/Carried/Asstd mlb1 Triage Assessment: 16:50 General: Appears in no apparent distress, Behavior is appropriate for age, cooperative. mlb1 Pain: Location: left hand Pain currently is 9 out of 10 on a pain scale. HIV screening NA for this visit Offered previously. Historical: - Allergies: Toradol (Vomit); - Home Meds: 1. clonazepam 0.5 mg Oral tab 1 tab 2 times per day 2. 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 Prozac 40 mg Oral cap 1 cap once daily 4. Tylenol 325 mg Oral tab 1 tab every 4 hours 5. gabapentin 100 mg Oral cap 2 caps daily - PMHx: Anxiety; Cleft Palate; collapsed lung; Depression; Seizure Disorder; - PSHx: Chest Tube- Left; cleft palate repair; - Social history: Smoking status: Patient uses tobacco products, heavy tobacco smoker. No barriers to communication noted, The patient speaks fluent Micronesian, Speaks appropriately for age. - Family history: Not pertinent. - : The pt / caregiver states he / she is not on anticoagulants. Home medication list is obtained from the patient. - Exposure Risk Screening:: None identified. Screenin:52 Screening information is obtained from the patient. Fall risk: No risks identified. ck1 Assistance ADL's: requires no assistance with activities of daily living. Abuse/DV Screen: The patient / caregiver reports he/she is: not in a situation that causes fear, pain or injury. Nutritional screening: No deficits noted. Advance Directives: Currently, there is no health care proxy. home support is adequate. Assessment: 17:52 General: Appears in no apparent distress, comfortable, Behavior is appropriate for age, ck1 cooperative. Pain: Location: left hand. Neurological: Level of Consciousness is awake, alert, obeys commands, Oriented to person, place, time. Respiratory: Respiratory effort is unlabored, Respiratory pattern is regular, symmetrical. Derm: Skin is pink, warm & dry. Vital Signs: 16:43 BP 128 / 61; Pulse 93; Resp 18; Temp 98.8(O); Pulse Ox 100% on R/A; Weight 68.04 kg; dem1 Height 5 ft. 1 in. (154.94 cm); Pain 9/10; 16:43 Body Mass Index 28.34 (68.04 kg, 154.94 cm) [facility] Vitals: 16:43 Log In Time: October 04, 2016 at 16:40. [facility] ED Course: 16:43 Patient visited by Kevin Benton. dem1 16:43 Other - Complete Info On Cds is Private Physician. dem1 16:43 Patient moved to Waiting dem1 16:44 Patient moved to Pre RCE dem1 16:[address] [facility] is Private Physician. dem1 16:47 Patient visited by Dick Ardon RN. mlb1 16:48 Triage Initiated mlb1 16:50 Patient visited by Dick Ardon RN. mlb1 17:21 Patient moved to Triage 3 jp4 17:25 Dick Sterling PA is PHCP. mo1 17:25 Angela Low MD is Attending Physician. mo1 17:33 Patient visited by Courtney Hearn RN. ck1 17:40 Patient visited by Dick Sterling PA. mo1 17:47 [facility] is Referral Physician. mo1 17:52 Patient moved to TR8 rs3 17:52 The patient / caregiver is instructed regarding the plan of care and ED course. ck1 17:52 No IV's were initiated during this patient's visit. No procedures done that require ck1 assistance. Administered Medications: 17:51 Drug: HYDROcodone-acetaminophen 4 pack- 1 packets [hydrocodone 5 mg-acetaminophen 325 ck1 mg tablet (1 tabs)] {Co-Signature: rs3 (Gretchen Carrasco RN).} Route: PO; Order Results: There are currently no results for this order. Outcome: 17:47 Discharge ordered by Provider. mo1 17:51 Discharge Assessment: Patient awake, alert and oriented x 3. No cognitive and/or ck1 functional deficits noted. Patient verbalized understanding of disposition instructions. patient administered narcotics - yes. Pt provided with safe discharge. The following High Risk Discharge criteria are identified: None. Discharged to home ambulatory, with significant other. Condition: stable. Discharge instructions given to patient, Instructed on discharge instructions, follow up and referral plans. medication usage, Demonstrated understanding of instructions, medications, Pt was receptive of discharge instructions/ teaching. Work note provided to patient. No special radiology studies were completed. Property :Personal belongings accompany Pt. 17:53 Patient left the ED. ck1 Signatures: Dick Ardon, RN RN mlb1 Courtney Hearn RN RN ck1 Gretchen Carrasco,RN RN rs3 Kevin Benton1 Dick Sterling PA PA mo1 Luigi Melendez jp4 Gretchen Carrasco RN rs3 MTDD
--- NOTE | 2016-10-06 18:54 | EDDOCDS ---
Physician Documentation [facility] Name: Abraham Spencer Age: 31 yrs Sex: Male : 1985 Arrival Date: 10/04/2016 Time: 16:41 Bed TR8 Private MD: ANNETTE WEBER Disposition: 10/04/16 17:47 Discharged to Home/Self Care. Impression: Contusion of left hand. - Condition is Stable. - Discharge Instructions: Elastic Bandage and RICE, Hand Contusion. - Medication Reconciliation, Local Pharmacy Hours, Work Release Form - 3 day form. - Follow up: ANNETTE WEBER; When: Call to arrange an appointment; Reason: Recheck today's complaints, Continuance of care. - Problem is new. - Symptoms are unchanged. Historical: - Allergies: Toradol (Vomit); - Home Meds: 1. clonazepam 0.5 mg Oral tab 1 tab 2 times per day 2. 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 Prozac 40 mg Oral cap 1 cap once daily 4. Tylenol 325 mg Oral tab 1 tab every 4 hours 5. gabapentin 100 mg Oral cap 2 caps daily - PMHx: Anxiety; Cleft Palate; collapsed lung; Depression; Seizure Disorder; - PSHx: Chest Tube- Left; cleft palate repair; - Social history: Smoking status: Patient uses tobacco products, heavy tobacco smoker. No barriers to communication noted, The patient speaks fluent Welsh, Speaks appropriately for age. - Family history: Not pertinent. - : The pt / caregiver states he / she is not on anticoagulants. Home medication list is obtained from the patient. - Exposure Risk Screening:: None identified. Vital Signs: 10/04 16:43 BP 128 / 61; Pulse 93; Resp 18; Temp 98.8(O); Pulse Ox 100% on R/A; Weight 68.04 kg / dem1 150 lbs; Height 5 ft. 1 in. (154.94 cm); Pain 9/10; 16:43 Body Mass Index 28.34 (68.04 kg, 154.94 cm) dem1 MDM: 17:46 HYDROcodone-acetaminophen 4 pack- 5 mg-325 mg 1 packets PO Per package directions; mo1 Dispense with patient. 1 po q4h prn for pain ordered. 17:46 Splint Affected Extremity ordered. mo1 21:59 T-Sheet-- Draft Copy was scanned into [employer] and attached to record. klr Administered Medications: 17:51 Drug: HYDROcodone-acetaminophen 4 pack- 1 packets [hydrocodone 5 mg-acetaminophen 325 ck1 mg tablet (1 tabs)] {Co-Signature: rs3 (Gretchen Carrasco RN).} Route: PO; Signatures: Dick Ardon RN RN mlb1 Courtney Hearn RN RN ck1 Dick Sterling PA PA mo1 Fanta Matos klr Gretchen Carrasco RN rs3 The chart was reviewed and I authenticate all verbal orders and agree with the evaluation and treatment provided.Attachments: 21:59 T-Sheet-- Draft Copy klr Chart Complete MTDD
--- NOTE | 2016-10-06 18:54 | EDDOCDS ---
Nurse's Notes [facility] Name: Abraham Spencer Age: 31 yrs Sex: Male : 1985 Arrival Date: 10/04/2016 Time: 16:41 Bed TR8 Private MD: ANNETTE WEBER Diagnosis: Contusion of left hand Presentation: 10/04 16:47 Presenting complaint: Patient states: Left hand injury on 09/30/16 here for recheck mlb1 states pain getting worse waking up at night. Adult Sepsis Screening: The patient does not have new or worsening altered mentation. Patient's respiratory rate is less than 22. Systolic blood pressure is greater than 100. Patient has a qSOFA score of 0- Negative Sepsis Screen. Suicide/Homicide risk assessment- the patient denies having any suicidal and/or homicidal ideations and does not present with any other emotional, behavioral or mental health complaints. Status: Patient is not a food service worker or dependent. Transition of care: patient was not received from another setting of care. 16:47 Acuity: ZACK Level 4 mlb1 16:47 Method Of Arrival: Walkin/Carried/Asstd mlb1 Triage Assessment: 16:50 General: Appears in no apparent distress, Behavior is appropriate for age, cooperative. mlb1 Pain: Location: left hand Pain currently is 9 out of 10 on a pain scale. HIV screening NA for this visit Offered previously. Historical: - Allergies: Toradol (Vomit); - Home Meds: 1. clonazepam 0.5 mg Oral tab 1 tab 2 times per day 2. oxycodone 5 mg Oral tab 1 tab every 4 hours unable to miner pick from the pharmacy 3. Prozac 40 mg Oral cap 1 cap once daily 4. Tylenol 325 mg Oral tab 1 tab every 4 hours 5. gabapentin 100 mg Oral cap 2 caps daily - PMHx: Anxiety; Cleft Palate; collapsed lung; Depression; Seizure Disorder; - PSHx: Chest Tube- Left; cleft palate repair; - Social history: Smoking status: Patient uses tobacco products, heavy tobacco smoker. No barriers to communication noted, The patient speaks fluent Surinamese, Speaks appropriately for age. - Family history: Not pertinent. - : The pt / caregiver states he / she is not on anticoagulants. Home medication list is obtained from the patient. - Exposure Risk Screening:: None identified. Screenin:52 Screening information is obtained from the patient. Fall risk: No risks identified. ck1 Assistance ADL's: requires no assistance with activities of daily living. Abuse/DV Screen: The patient / caregiver reports he/she is: not in a situation that causes fear, pain or injury. Nutritional screening: No deficits noted. Advance Directives: Currently, there is no health care proxy. home support is adequate. Assessment: 17:52 General: Appears in no apparent distress, comfortable, Behavior is appropriate for age, ck1 cooperative. Pain: Location: left hand. Neurological: Level of Consciousness is awake, alert, obeys commands, Oriented to person, place, time. Respiratory: Respiratory effort is unlabored, Respiratory pattern is regular, symmetrical. Derm: Skin is pink, warm & dry. Vital Signs: 16:43 BP 128 / 61; Pulse 93; Resp 18; Temp 98.8(O); Pulse Ox 100% on R/A; Weight 68.04 kg; dem1 Height 5 ft. 1 in. (154.94 cm); Pain 9/10; 16:43 Body Mass Index 28.34 (68.04 kg, 154.94 cm) [facility] Vitals: 16:43 Log In Time: October 04, 2016 at 16:40. [facility] ED Course: 16:43 Patient visited by Kevin Benton. dem1 16:43 Other - Complete Info On Cds is Private Physician. dem1 16:43 Patient moved to Waiting dem1 16:44 Patient moved to Pre RCE dem1 16:45 [facility] is Private Physician. dem1 16:47 Patient visited by Dick Ardon RN. mlb1 16:48 Triage Initiated mlb1 16:50 Patient visited by Dick Ardon RN. mlb1 17:21 Patient moved to Triage 3 jp4 17:25 Dick Sterling PA is PHCP. mo1 17:25 Angela Low MD is Attending Physician. mo1 17:33 Patient visited by Courtney Hearn RN. ck1 17:40 Patient visited by Dick Sterling PA. mo1 17:47 [facility] is Referral Physician. mo1 17:52 Patient moved to TR8 rs3 17:52 The patient / caregiver is instructed regarding the plan of care and ED course. ck1 17:52 No IV's were initiated during this patient's visit. No procedures done that require ck1 assistance. 21:59 T-Sheet-- Draft Copy was scanned into [employer] and attached to record. klr Administered Medications: 17:51 Drug: HYDROcodone-acetaminophen 4 pack- 1 packets [hydrocodone 5 mg-acetaminophen 325 ck1 mg tablet (1 tabs)] {Co-Signature: rs3 (Gretchen Carrasco RN).} Route: PO; Order Results: There are currently no results for this order. Outcome: 17:47 Discharge ordered by Provider. mo1 17:51 Discharge Assessment: Patient awake, alert and oriented x 3. No cognitive and/or ck1 functional deficits noted. Patient verbalized understanding of disposition instructions. patient administered narcotics - yes. Pt provided with safe discharge. The following High Risk Discharge criteria are identified: None. Discharged to home ambulatory, with significant other. Condition: stable. Discharge instructions given to patient, Instructed on discharge instructions, follow up and referral plans. medication usage, Demonstrated understanding of instructions, medications, Pt was receptive of discharge instructions/ teaching. Work note provided to patient. No special radiology studies were completed. Property :Personal belongings accompany Pt. 17:53 Patient left the ED. ck1 Signatures: Dick Ardon RN RN mlb1 Courtney Hearn RN RN ck1 Gretchen Carrasco,RN RN rs3 Kevin Benton Michael, PA PA mo1 Luigi Melendez jp4 Fanta Matosr Gretchen Carrasco RN rs3 Chart Complete MTDD
--- NOTE | 2016-10-06 18:54 | EDDOCDS ---
Physician Documentation [facility] Name: Abraham Spencer Age: 31 yrs Sex: Male : 1985 Arrival Date: 10/04/2016 Time: 16:41 Bed TR8 Private MD: ANNETTE WEBER Disposition: 10/04/16 17:47 Discharged to Home/Self Care. Impression: Contusion of left hand. - Condition is Stable. - Discharge Instructions: Elastic Bandage and RICE, Hand Contusion. - Medication Reconciliation, Local Pharmacy Hours, Work Release Form - 3 day form. - Follow up: ANNETTE WEBER; When: Call to arrange an appointment; Reason: Recheck today's complaints, Continuance of care. - Problem is new. - Symptoms are unchanged. Historical: - Allergies: Toradol (Vomit); - Home Meds: 1. clonazepam 0.5 mg Oral tab 1 tab 2 times per day 2. 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 Prozac 40 mg Oral cap 1 cap once daily 4. Tylenol 325 mg Oral tab 1 tab every 4 hours 5. gabapentin 100 mg Oral cap 2 caps daily - PMHx: Anxiety; Cleft Palate; collapsed lung; Depression; Seizure Disorder; - PSHx: Chest Tube- Left; cleft palate repair; - Social history: Smoking status: Patient uses tobacco products, heavy tobacco smoker. No barriers to communication noted, The patient speaks fluent Tajik, Speaks appropriately for age. - Family history: Not pertinent. - : The pt / caregiver states he / she is not on anticoagulants. Home medication list is obtained from the patient. - Exposure Risk Screening:: None identified. Vital Signs: 10/04 16:43 BP 128 / 61; Pulse 93; Resp 18; Temp 98.8(O); Pulse Ox 100% on R/A; Weight 68.04 kg / dem1 150 lbs; Height 5 ft. 1 in. (154.94 cm); Pain 9/10; 16:43 Body Mass Index 28.34 (68.04 kg, 154.94 cm) dem1 MDM: 17:46 HYDROcodone-acetaminophen 4 pack- 5 mg-325 mg 1 packets PO Per package directions; mo1 Dispense with patient. 1 po q4h prn for pain ordered. 17:46 Splint Affected Extremity ordered. mo1 21:59 T-Sheet-- Draft Copy was scanned into [employer] and attached to record. klr Administered Medications: 17:51 Drug: HYDROcodone-acetaminophen 4 pack- 1 packets [hydrocodone 5 mg-acetaminophen 325 ck1 mg tablet (1 tabs)] {Co-Signature: rs3 (Gretchen Carrasco RN).} Route: PO; Signatures: Dick Ardon RN RN mlb1 Courtney Hearn RN RN ck1 Dick Sterling PA PA mo1 Fanta Matos klr Gretchen Carrasco RN rs3 The chart was reviewed and I authenticate all verbal orders and agree with the evaluation and treatment provided.Attachments: 21:59 T-Sheet-- Draft Copy klr Chart Complete MTDD
== END 2016-10-04 17:53 | disposition home or self-care (01) ==
LOC: M ED 16:41
DX: S60.222A Contusion of left hand, initial encounter (principal); X58.XXXA Exposure to other specified factors, initial encounter; Y92.89 Other specified places as the place of occurrence of the external cause; Y93.89 Activity, other specified; Y99.8 Other external cause status; F41.9 Anxiety disorder, unspecified; F32.9 Major depressive disorder, single episode, unspecified; G40.909 Epilepsy, unspecified, not intractable, without status epilepticus; Z87.09 Personal history of other diseases of the respiratory system; Z79.899 Other long term (current) drug therapy; Z88.8 Allergy status to other drugs, medicaments and biological substances; F17.210 Nicotine dependence, cigarettes, uncomplicated

== ENCOUNTER 2016-10-21 04:09 | Emergency (ER) | payer OTHER ==
[2016-10-21] MEDS ORDERED: traMADol 50 MG TAB As Ordered ONE (04:52)
--- NOTE | 2016-10-21 05:11 | EDDOCDS ---
Physician Documentation [facility] Name: Abraham Spencer Age: 31 yrs Sex: Male : 1985 Arrival Date: 10/21/2016 Time: 04:09 Bed 5 Private MD: Disposition: 10/21/16 05:01 Discharged to Home/Self Care. Impression: Chronic post-thoracotomy pain. - Condition is Stable. - Medication Reconciliation, Local Pharmacy Hours form. - Follow up: Private Physician; When: Call to arrange an appointment; Reason: Continuance of care. - Problem is chronic. - Symptoms are unchanged. Historical: - Allergies: Toradol (Vomit); - Home Meds: 1. gabapentin 100 mg Oral cap 2 caps daily (Last dose: 10/21/2016 01:00) 2. clonazepam 0.5 mg Oral tab 1 tab 2 times per day (Last dose: 10/20/2016 13:00) 3. Prozac 40 mg Oral cap 1 cap once daily (Last dose: 10/20/2016 08:00) - PMHx: Anxiety; Cleft Palate; collapsed lung; Depression; Seizure Disorder; - PSHx: pneumothorax; cleft palate; - Social history: Smoking status: Patient uses tobacco products, heavy tobacco smoker. No barriers to communication noted, The patient speaks fluent Gambian. - Family history: No immediate family members are acutely ill. - : The pt / caregiver states he / she is not on anticoagulants. Home medication list is obtained from the patient, Unable to Verify Home Med List with the patient / caregiver. - Exposure Risk Screening:: None identified. Vital Signs: 10/21 04:40 BP 129 / 82; Pulse 104; Resp 18; Temp 98.7(TE); Pulse Ox 97% on R/A; Weight 68.04 kg / nn1 150 lbs; Height 5 ft. 2 in. (157.48 cm); Pain 8/10; 04:40 Body Mass Index 27.44 (68.04 kg, 157.48 cm) nn1 MDM: 04:49 traMADol 50 mg PO once ordered. cs11 04:49 Chest, 2 View (pa\E\lat) Ordered. EDMS Administered Medications: 04:59 Drug: traMADol 50 mg [tramadol 50 mg tablet (1 tabs)] Route: PO; nn1 Signatures: Dispatcher [employer] EDMS Drake Alethea New, RN RN Shun Rendon DO DO cs11 Angel Barrow RN RN nn1 JEFFRY
--- NOTE | 2016-10-21 05:11 | EDDOCDS ---
Nurse's Notes [facility] Name: Abraham Spencer Age: 31 yrs Sex: Male : 1985 Arrival Date: 10/21/2016 Time: 04:09 Bed 5 Private MD: Diagnosis: Chronic post-thoracotomy pain Presentation: 10/21 04:14 Presenting complaint: Patient states: he helped someone move over the last couple days. arti Was in pain management program in [place] in the past. states tylenol upsets his stomach but percocet does not. complaining of left sided pain at site of previous scar from pneumothorax. Adult Sepsis Screening: The patient does not have new or worsening altered mentation. Patient's respiratory rate is less than 22. Systolic blood pressure is greater than 100. Patient has a qSOFA score of 0- Negative Sepsis Screen. Suicide/Homicide risk assessment- the patient denies having any suicidal and/or homicidal ideations and does not present with any other emotional, behavioral or mental health complaints. 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 Transition of care: patient was not received from another setting of care. 04:14 Acuity: ZACK Level 4 aug 04:14 Method Of Arrival: Ambulance aug Triage Assessment: 04:40 General: Appears in no apparent distress, comfortable, Behavior is appropriate for age, nn1 cooperative, Patient texting on phone throughout triage process. . Pain: Location: anterior aspect of left lateral abdomen and posterior aspect of left lateral abdomen Pain currently is 8 out of 10 on a pain scale. HIV screening NA for this visit Offered previously. The patient is triaged at the bedside. See Assessment in Nurses Notes section of ED record. Neurological: Level of Consciousness is awake, alert, obeys commands, Oriented to person, place, time. Respiratory: Airway is patent Respiratory effort is even, unlabored, Respiratory pattern is regular, symmetrical, Breath sounds are clear bilaterally. Reports shortness of breath. GI: No deficits noted. Derm: Skin is pink, warm & dry. Historical: - Allergies: Toradol (Vomit); - Home Meds: 1. gabapentin 100 mg Oral cap 2 caps daily (Last dose: 10/21/2016 01:00) 2. clonazepam 0.5 mg Oral tab 1 tab 2 times per day (Last dose: 10/20/2016 13:00) 3. Prozac 40 mg Oral cap 1 cap once daily (Last dose: 10/20/2016 08:00) - PMHx: Anxiety; Cleft Palate; collapsed lung; Depression; Seizure Disorder; - PSHx: pneumothorax; cleft palate; - Social history: Smoking status: Patient uses tobacco products, heavy tobacco smoker. No barriers to communication noted, The patient speaks fluent Panamanian. - Family history: No immediate family members are acutely ill. - : The pt / caregiver states he / she is not on anticoagulants. Home medication list is obtained from the patient, Unable to Verify Home Med List with the patient / caregiver. - Exposure Risk Screening:: None identified. Screenin:04 Screening information is obtained from the patient. Fall risk: No risks identified. nn1 Assistance ADL's: requires no assistance with activities of daily living. Abuse/DV Screen: The patient / caregiver reports he/she is: not in a situation that causes fear, pain or injury. Nutritional screening: No deficits noted. Advance Directives: There is no active DNR order. home support is adequate. Assessment: 04:42 General: See triage assessment . Cardiovascular: Capillary refill < 3 seconds Chest nn1 pain is denied. Respiratory: Airway is patent Respiratory effort is even, unlabored, Respiratory pattern is regular, symmetrical, Breath sounds are clear bilaterally. Derm: Skin is pink, warm & dry. 05:08 General: Appears in no apparent distress, comfortable. Respiratory: Airway is patent nn1 Respiratory effort is even, unlabored, Respiratory pattern is regular, symmetrical. Derm: Skin is pink, warm & dry. Vital Signs: 04:40 BP 129 / 82; Pulse 104; Resp 18; Temp 98.7(TE); Pulse Ox 97% on R/A; Weight 68.04 kg; nn1 Height 5 ft. 2 in. (157.48 cm); Pain 8/10; 04:40 Body Mass Index 27.44 (68.04 kg, 157.48 cm) nn1 Vitals: 04:40 Log In Time N/A - ambulance arrival. nn1 ED Course: 04:10 Patient visited by Beverly Murdock, Internet Retailer. ml3 04:10 Patient moved to Waiting ml3 04:10 Patient moved to 5 ml3 04:14 Shun Estrada DO is Attending Physician. cs11 04:14 Patient visited by Shun Estrada DO. cs11 04:20 Triage Initiated aug 04:50 Patient moved to Radiology [facility] 04:58 Patient moved to [facility] 05:01 Patient visited by Angel Barrow,DAVID. nn1 05:04 No IV's were initiated during this patient's visit. No procedures done that require nn1 assistance. 05:09 The patient / caregiver is instructed regarding the plan of care and ED course. nn1 Administered Medications: 04:59 Drug: traMADol 50 mg [tramadol 50 mg tablet (1 tabs)] Route: PO; nn1 Order Results: There are currently no results for this order. Outcome: 05:01 Discharge ordered by Provider. cs11 05:09 Discharge Assessment: Patient awake, alert and oriented x 3. No cognitive and/or nn1 functional deficits noted. Patient verbalized understanding of disposition instructions. patient administered narcotics - yes. Pt provided with safe discharge. The following High Risk Discharge criteria are identified: None. Discharged to home ambulatory. Condition: stable Condition: improved. No special radiology studies were completed. Property :Personal belongings accompany Pt. 05:10 Patient left the ED. nn1 Signatures: Alethea Juan, RN RN Beverly Heart, Internet Retailer Unit ml3 Shun Estrada DO DO cs11 Graham Crowley [facility] Angel Barrow,RN RN nn1 MTDD
--- NOTE | 2016-10-21 10:20 | REP ---
TWO VIEW CHEST: Two views of the chest are performed. No consolidating infiltrate is seen. There is mild bibasilar discoid atelectasis. The heart and mediastinum are within normal limits and the visualized osseous structures appear intact. IMPRESSION: No acute infiltrate. Signed by José Luis Hopper MD 10/21/2016 04:52 P
--- NOTE | 2016-10-23 06:11 | EDDOCDS ---
Physician Documentation [facility] Name: Abraham Spencer Age: 31 yrs Sex: Male : 1985 Arrival Date: 10/21/2016 Time: 04:09 Bed 5 Private MD: Disposition: 10/21/16 05:01 Discharged to Home/Self Care. Impression: Chronic post-thoracotomy pain. - Condition is Stable. - Medication Reconciliation, Local Pharmacy Hours form. - Follow up: Private Physician; When: Call to arrange an appointment; Reason: Continuance of care. - Problem is chronic. - Symptoms are unchanged. Historical: - Allergies: Toradol (Vomit); - Home Meds: 1. gabapentin 100 mg Oral cap 2 caps daily (Last dose: 10/21/2016 01:00) 2. clonazepam 0.5 mg Oral tab 1 tab 2 times per day (Last dose: 10/20/2016 13:00) 3. Prozac 40 mg Oral cap 1 cap once daily (Last dose: 10/20/2016 08:00) - PMHx: Anxiety; Cleft Palate; collapsed lung; Depression; Seizure Disorder; - PSHx: pneumothorax; cleft palate; - Social history: Smoking status: Patient uses tobacco products, heavy tobacco smoker. No barriers to communication noted, The patient speaks fluent Canadian. - Family history: No immediate family members are acutely ill. - : The pt / caregiver states he / she is not on anticoagulants. Home medication list is obtained from the patient, Unable to Verify Home Med List with the patient / caregiver. - Exposure Risk Screening:: None identified. Vital Signs: 10/21 04:40 BP 129 / 82; Pulse 104; Resp 18; Temp 98.7(TE); Pulse Ox 97% on R/A; Weight 68.04 kg / nn1 150 lbs; Height 5 ft. 2 in. (157.48 cm); Pain 8/10; 04:40 Body Mass Index 27.44 (68.04 kg, 157.48 cm) nn1 MDM: 04:49 traMADol 50 mg PO once ordered. cs11 04:49 Chest, 2 View (pa\E\lat) Ordered. EDMS Administered Medications: 04:59 Drug: traMADol 50 mg [tramadol 50 mg tablet (1 tabs)] Route: PO; nn1 Signatures: Dispatcher [employer] EDMS Drake Alethea New, RN RN Shun Rendon DO DO cs11 Angel Barrow RN RN nn1 Chart Complete MTDD
--- NOTE | 2016-10-23 06:11 | EDDOCDS ---
Nurse's Notes [facility] Name: Abraham Spencer Age: 31 yrs Sex: Male : 1985 Arrival Date: 10/21/2016 Time: 04:09 Bed 5 Private MD: Diagnosis: Chronic post-thoracotomy pain Presentation: 10/21 04:14 Presenting complaint: Patient states: he helped someone move over the last couple days. arti Was in pain management program in [place] in the past. states tylenol upsets his stomach but percocet does not. complaining of left sided pain at site of previous scar from pneumothorax. Adult Sepsis Screening: The patient does not have new or worsening altered mentation. Patient's respiratory rate is less than 22. Systolic blood pressure is greater than 100. Patient has a qSOFA score of 0- Negative Sepsis Screen. Suicide/Homicide risk assessment- the patient denies having any suicidal and/or homicidal ideations and does not present with any other emotional, behavioral or mental health complaints. Status: Patient is not a support services tech or dependent. Transition of care: patient was not received from another setting of care. 04:14 Acuity: ZACK Level 4 aug 04:14 Method Of Arrival: Ambulance aug Triage Assessment: 04:40 General: Appears in no apparent distress, comfortable, Behavior is appropriate for age, nn1 cooperative, Patient texting on phone throughout triage process. . Pain: Location: anterior aspect of left lateral abdomen and posterior aspect of left lateral abdomen Pain currently is 8 out of 10 on a pain scale. HIV screening NA for this visit Offered previously. The patient is triaged at the bedside. See Assessment in Nurses Notes section of ED record. Neurological: Level of Consciousness is awake, alert, obeys commands, Oriented to person, place, time. Respiratory: Airway is patent Respiratory effort is even, unlabored, Respiratory pattern is regular, symmetrical, Breath sounds are clear bilaterally. Reports shortness of breath. GI: No deficits noted. Derm: Skin is pink, warm & dry. Historical: - Allergies: Toradol (Vomit); - Home Meds: 1. gabapentin 100 mg Oral cap 2 caps daily (Last dose: 10/21/2016 01:00) 2. clonazepam 0.5 mg Oral tab 1 tab 2 times per day (Last dose: 10/20/2016 13:00) 3. Prozac 40 mg Oral cap 1 cap once daily (Last dose: 10/20/2016 08:00) - PMHx: Anxiety; Cleft Palate; collapsed lung; Depression; Seizure Disorder; - PSHx: pneumothorax; cleft palate; - Social history: Smoking status: Patient uses tobacco products, heavy tobacco smoker. No barriers to communication noted, The patient speaks fluent Namibian. - Family history: No immediate family members are acutely ill. - : The pt / caregiver states he / she is not on anticoagulants. Home medication list is obtained from the patient, Unable to Verify Home Med List with the patient / caregiver. - Exposure Risk Screening:: None identified. Screenin:04 Screening information is obtained from the patient. Fall risk: No risks identified. nn1 Assistance ADL's: requires no assistance with activities of daily living. Abuse/DV Screen: The patient / caregiver reports he/she is: not in a situation that causes fear, pain or injury. Nutritional screening: No deficits noted. Advance Directives: There is no active DNR order. home support is adequate. Assessment: 04:42 General: See triage assessment . Cardiovascular: Capillary refill < 3 seconds Chest nn1 pain is denied. Respiratory: Airway is patent Respiratory effort is even, unlabored, Respiratory pattern is regular, symmetrical, Breath sounds are clear bilaterally. Derm: Skin is pink, warm & dry. 05:08 General: Appears in no apparent distress, comfortable. Respiratory: Airway is patent nn1 Respiratory effort is even, unlabored, Respiratory pattern is regular, symmetrical. Derm: Skin is pink, warm & dry. Vital Signs: 04:40 BP 129 / 82; Pulse 104; Resp 18; Temp 98.7(TE); Pulse Ox 97% on R/A; Weight 68.04 kg; nn1 Height 5 ft. 2 in. (157.48 cm); Pain 8/10; 04:40 Body Mass Index 27.44 (68.04 kg, 157.48 cm) nn1 Vitals: 04:40 Log In Time N/A - ambulance arrival. nn1 ED Course: 04:10 Patient visited by Beverly Murdock, Lacquer Spray Booth Operator. ml3 04:10 Patient moved to Waiting ml3 04:10 Patient moved to 5 ml3 04:14 Shun Estrada DO is Attending Physician. cs11 04:14 Patient visited by Shun Estrada DO. cs11 04:20 Triage Initiated aug 04:50 Patient moved to Radiology [facility] 04:58 Patient moved to 5 [facility] 05:01 Patient visited by Angel Barrow RN. nn1 05:04 No IV's were initiated during this patient's visit. No procedures done that require nn1 assistance. 05:09 The patient / caregiver is instructed regarding the plan of care and ED course. nn1 10:43 Chest, 2 View (pa\E\lat) Returned. EDMS Administered Medications: 04:59 Drug: traMADol 50 mg [tramadol 50 mg tablet (1 tabs)] Route: PO; nn1 Order Results: Radiology Order: Chest, 2 View (pa\E\lat) Test: Chest, 2 View (pa\E\lat) REASON FOR EXAMINATION: Chest Pain; TWO VIEW CHEST:; ; Two views of the chest are performed. No consolidating infiltrate is seen.; There is mild bibasilar discoid atelectasis. The heart and mediastinum are; within normal limits and the visualized osseous structures appear intact.; ; IMPRESSION:; ; No acute infiltrate.; ; ; Signed by; oJsé Luis Hopper MD 10/21/2016 04:52 P; Outcome: 05:01 Discharge ordered by Provider. cs11 05:09 Discharge Assessment: Patient awake, alert and oriented x 3. No cognitive and/or nn1 functional deficits noted. Patient verbalized understanding of disposition instructions. patient administered narcotics - yes. Pt provided with safe discharge. The following High Risk Discharge criteria are identified: None. Discharged to home ambulatory. Condition: stable Condition: improved. No special radiology studies were completed. Property :Personal belongings accompany Pt. 05:10 Patient left the ED. nn1 Signatures: Dispatcher [employer] EDMS Alethea Juan RN RN jan Lopresti, Mary-Elizabeth, Lacquer Spray Booth Operator Unit ml3 Shun Estrada DO DO cs11 Graham Crowley [facility] Angel Barrow RN RN nn1 Chart Complete MTDD
== END 2016-10-21 05:10 | disposition home or self-care (01) ==
LOC: M ED 04:09
DX: G89.29 Other chronic pain (principal); R07.9 Chest pain, unspecified; F41.9 Anxiety disorder, unspecified; F32.9 Major depressive disorder, single episode, unspecified; G40.909 Epilepsy, unspecified, not intractable, without status epilepticus; Z87.09 Personal history of other diseases of the respiratory system; Z87.730 Personal history of (corrected) cleft lip and palate; Z79.899 Other long term (current) drug therapy; F17.210 Nicotine dependence, cigarettes, uncomplicated

== ENCOUNTER 2016-10-26 13:47 | Inpatient (IN) | payer OTHER ==
[~2016-10-26] VITALS: Ht 157.5 cm; Wt 69.8 kg
[2016-10-26] MEDS ORDERED: TRAZ50TA4 PO (14:07)
[2016-10-26] MEDS ORDERED: GABA-283 PO (14:07)
[2016-10-26] MEDS ORDERED: REME45TA PO (14:07)
[2016-10-26] MEDS ORDERED: KLON0.5T PO (14:07)
[2016-10-26] MEDS ORDERED: PROZ40CA PO (14:07)
[2016-10-26] MEDS ORDERED: clonazePAM 0.5 MG TAB PO ONE (14:30)
[2016-10-26] MEDS ORDERED: FLUoxetine 10 MG CAP PO ONE (14:30)
[2016-10-26] MEDS ORDERED: FLUoxetine 20 MG CAP PO ONE (14:30)
[2016-10-26] MEDS ORDERED: traZODone 50 MG TAB PO ONE (14:30)
[2016-10-26 14:43] LABS: MEAN CORPUSCULAR HEMOGLOBIN 31.7 pg (27.0-33.0); MEAN CORPUSCULAR HGB CONC 34.3 g/dl (32.0-36.5); MEAN CORPUSCULAR VOLUME 92.6 fl (80.0-96.0); RED CELL DISTRIBUTION WIDTH 12.6 % (11.5-14.5); WHITE BLOOD COUNT 6.8 K/mm3 (4.0-10.0)
[2016-10-26 14:58] LABS: CONTROL LINE INT CTR LINE PRESENT; METHADONE URINE NEGATIVE (NEGATIVE); TRICYCLIC ANTIDEPRESS URINE NEGATIVE (NEGATIVE)
[2016-10-26 15:20] LABS: ALBUMIN 3.8 GM/DL (3.2-5.2); ALBUMIN/GLOBULIN RATIO 1.27 (1.00-1.93); ALKALINE PHOSPHATASE 67 U/L (45-117); ALT/SGPT 60 U/L (12-78); ANION GAP 6 MEQ/L (8-16); AST/SGOT 59 U/L (15-37); BILIRUBIN,DIRECT < 0.1 MG/DL (0.0-0.2); BILIRUBIN,TOTAL 0.2 MG/DL (0.2-1.0); BLOOD UREA NITROGEN 7 MG/DL (7-18); CALCIUM LEVEL 8.3 MG/DL (8.5-10.1); CARBON DIOXIDE LEVEL 30 MEQ/L (21-32); CHLORIDE LEVEL 108 MEQ/L (98-107); GLOMERULAR FILTRATION RATE > 60.0 (>60); GLUCOSE, FASTING 85 MG/DL (70-105); POTASSIUM SERUM 4.3 MEQ/L (3.5-5.1); SODIUM LEVEL 144 MEQ/L (136-145); TOTAL PROTEIN 6.8 GM/DL (6.4-8.2)
[2016-10-26] MEDS ORDERED: MAALOX 30 ML SUSP *UDC PO PRN (18:00)
[2016-10-26] MEDS ORDERED: ACETAMINOPHEN TAB 650MG DOSE (2X325MG) PO PRN (18:00)
[2016-10-26] MEDS ORDERED: traZODone 100 MG TAB PO PRN (18:00)
[2016-10-26] MEDS ORDERED: chlordiazePOXIDE 25 MG CAP PO PRN (18:00)
[2016-10-26] MEDS ORDERED: MOM 30ML SUSPENSION UDC PO PRN (18:00)
[2016-10-26] MEDS ORDERED: GABA800T PO (18:10)
[2016-10-26 18:36] VITALS: BP 135/63
[2016-10-26] MEDS ORDERED: NICOTINE 21MG/24HR 1 EA TRANSDERMAL TD ONE (19:00)
[2016-10-26] MEDS: NICOTINE 21MG/24HR 1 EA TRANSDERMAL TD SCH (20:21)
[2016-10-26] MEDS: FLUoxetine 20 MG CAP PO SCH (20:22)
[2016-10-26] MEDS: GABAPENTIN 400 MG CAP PO SCH (20:23)
[2016-10-26] MEDS ORDERED: GABAPENTIN 400 MG CAP PO SCH (21:00)
[2016-10-27 06:21] VITALS: BP 117/57
--- NOTE | 2016-10-27 07:57 | REP ---
LEFT HAND, FOUR VIEWS: There is no evidence of an acute fracture, dislocation or intrinsic bone disease. IMPRESSION: No fracture or dislocation. Signed by José Luis Hopper MD 10/27/2016 04:10 P
[2016-10-27] MEDS: FLUoxetine 20 MG CAP PO SCH (08:23)
[2016-10-27] MEDS: GABAPENTIN 400 MG CAP PO SCH ×3 (08:23→21:11)
[2016-10-27] MEDS: NICOTINE 21MG/24HR 1 EA TRANSDERMAL TD SCH (08:24)
[2016-10-27] MEDS ORDERED: FLUoxetine 20 MG CAP PO SCH (09:00)
--- NOTE | 2016-10-27 09:27 | HPEPDOC ---
Medical History and Physical Date of Admission Oct 26, 2016 at 18:30 History and Physical PCP: Dr Salas ATTENDING: Dr. Ilir Haddad HPI: 31yoF admitted to [facility] for Unspecified depressive disorder, being medically examined today. No acute medical complaints today. Denies any fevers, chills, weakness, fatigue, KEMP, CP, SOB, cough, palpitations, abdominal pain, N/V /D or changes in bowel or bladder habits. PMHx: Anxiety Depression PTSD Cleft palate status post repair Tobacco use History of substance use PSHX: Cleft palate repair Pneumothorax/chest tube SOCHX: Resides in: [place] Marital Status: Single Kids: None Employment: Unemployed Tobacco use: 2 packs per day ETOH: 2 drinks per month Illicit Drugs: Marijuana 3-4 times per month IV Drug Use: Denies Tattoos done unprofessionally: Denies FAMHX: Mother: Unknown Father: Alive, well Siblings: One brother Alive, well Children: None Unexpected deaths due to medical reasons: None. ROS: As noted in HPI, otherwise 11pt ROS of systems reviewed and remarkable only for excoriation noted on his forehead which the patient states is related to tripping and falling in his apartment a few days ago. According to the emergency department records this is related to painting his head on a wall in the emergency department. PE: GEN: 31yoM, appears stated age. Well-nourished, well developed. No acute distress. Alert and oriented x 3. Pleasant, interactive. HEENT: Normocephalic, atraumatic. Pupils are equal, round, and reactive to light. Extraocular movements are intact. No nystagmus appreciated. Sclera are nonicteric. Conjunctiva without injection. Nose midline. Nasal turbinates without bogginess. EACs both patent BL. TMs both visualized and phan with good cone of light, no bulging or erythema. No facial asymmetry. Moist mucous membranes. Dentition fair. Pharynx pink and moist, no cobblestoning. Neck supple , trachea midline. No lymphadenopathy or thyromegaly appreciated. CHEST: Regular rate and rhythm, +S1, +S2 LUNGS: Clear to auscultation bilaterally. No wheezes, rales, or rhonchi. Breathing appears symmetric and easy. Patient is speaking in full sentences. No accessory muscle use. ABD: Round, soft, non-tender, non-distended. +Bowel sounds throughout. No rebound or guarding. No costovertebral angle tenderness. EXT: Pulses 2+ bilaterally dorsalis pedis and radial. No lower extremity edema appreciated. SKIN: [place], dry, warm. Capillary refill <2sec. No rashes. There is an abrasion noted on the forehead. There is no drainage, minimal erythema noted. NEURO: Alert and oriented x 3. Cranial nerves III-XII are intact. No focal deficits appreciated. EKG: pending. X-ray of the left hand with no fracture or dislocation. A&P: 31yoF admitted to [facility] for Unspecified depressive disorder 1. Psych. Plan per Psychiatry. Obtain baseline EKG to assure the safety of psychiatric medications as they can prolong the QT interval. 2. Nicotine dependence. Patch available. 3. Abrasion forehead. Apply Bactroban twice a day as needed. 4. Follow up with PCP on discharge. 5. Substance use. Per psychiatry. 6. Elevated ALT. Recheck CMP in a.m. 7. Staff member present throughout exam, dexter Jacques. Vital Signs Vital Signs Label Value Date Time Patient Temperature 97.4 degrees F 10/27/16 0621 Temperature Source Tympanic 10/27/16 0621 Pulse 68 10/27/16 0621 Respiratory Rate 20 bpm 10/27/16 0621 Blood Pressure Assessment 117/57 (77) 10/27/16 0621 Laboratory Data Labs 24H Laboratory Tests 2 10/26/16 14:32: Acetaminophen Level < 2.0L, Aspartate Amino Transf (AST/SGOT) 59H, Alanine Aminotransferase (ALT/SGPT) 60, Alkaline Phosphatase 67, Total Bilirubin 0.2, Direct Bilirubin < 0.1, Albumin 3.8, Albumin/Globulin Ratio 1.27, Anion Gap 6L, Calcium Level 8.3L, Ethyl Alcohol Level 0.133H, Glomerular Filtration Rate > 60.0, Salicylates Level 4.1L, Thyroid Stimulating Hormone (TSH) 0.473, Total Protein 6.8 10/26/16 14:33: Urine Amphetamines Screen NEGATIVE, Urine Benzodiazepines Screen POSITIVEH, Urine Opiates Screen NEGATIVE, Urine Barbiturates Screen NEGATIVE, Urine Cannabinoids Screen POSITIVEH, Urine Cocaine Metabolite Screen POSITIVEH, Urine Methadone Screen NEGATIVE, Urine Tricyclic Antidepressants NEGATIVE CBC/BMP Laboratory Tests 10/26/16 14:32 Red Blood Count 4.32, Mean Corpuscular Volume 92.6, Mean Corpuscular Hemoglobin 31.7, Mean Corpuscular Hemoglobin Concent 34.3, Red Cell Distribution Width 12.6 Home Medications Scheduled Clonazepam (Klonopin) 0.5 Mg Tab 0.5 MG PO BID Fluoxetine HCl (Prozac) 40 Mg Cap 40 MG PO DAILY Gabapentin (Gabapentin) 800 Mg Tab 800 MG PO TID Mirtazapine (Remeron) 45 Mg Tab 45 MG PO QHS Trazodone HCl (Trazodone HCl) 50 Mg Tab 50 MG PO TID Allergies Coded Allergies: No Known Allergies (Unverified , 05/17/16) Michelle Haque Oct 27, 2016 09:27
[2016-10-27] MEDS: MUPIROCIN 2% OINT 22 GM TUBE TOP SCH ×2 (11:24→21:00)
--- NOTE | 2016-10-27 14:59 | ECGEPIP ---
Stationary ECG Study [facility] Test Date: 2016-10-27 Pat Name: DARRYL MULLER Department: Room: [place] [address] Gender: M Supervisor Area: : 1985 Requested By: Michelle Haque Order Number: [id number] Reading MD: Leyda Suazo Measurements Intervals [place] Rate: 83 P: 50 AR: 128 QRS: 51 QRSD: 89 T: 10 QT: 354 QTc: 416 Interpretive Statements SINUS RHYTHM t wave abn EARLY REPOLAR/PERICARDITIS OTHER no prior Electronically Signed On 10-27-2016 14:59:00 EST by Leyda Suazo
[2016-10-27 18:00] VITALS: BP 113/60
[2016-10-27] MEDS: MIRTAZAPINE 15 MG TAB PO SCH (21:11)
[2016-10-28 06:24] VITALS: BP 111/57
[2016-10-28 08:01] LABS: ALBUMIN 3.2 GM/DL (3.2-5.2); ALKALINE PHOSPHATASE 67 U/L (45-117); ALT/SGPT 38 U/L (12-78); ANION GAP 11 MEQ/L (8-16); AST/SGOT 20 U/L (15-37); BILIRUBIN,TOTAL 0.2 MG/DL (0.2-1.0); BLOOD UREA NITROGEN 10 MG/DL (7-18); CALCIUM LEVEL 8.5 MG/DL (8.5-10.1); CARBON DIOXIDE LEVEL 26 MEQ/L (21-32); CHLORIDE LEVEL 107 MEQ/L (98-107); CREATININE FOR GFR 0.91 MG/DL (0.70-1.30); GLOMERULAR FILTRATION RATE > 60.0 (>60); GLUCOSE, FASTING 125 MG/DL (70-105); POTASSIUM SERUM 4.2 MEQ/L (3.5-5.1); SODIUM LEVEL 144 MEQ/L (136-145); TOTAL PROTEIN 6.1 GM/DL (6.4-8.2)
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
[2016-10-28] MEDS: GABAPENTIN 400 MG CAP PO SCH ×3 (08:45→20:18)
[2016-10-28] MEDS: FLUoxetine 20 MG CAP PO SCH (08:45)
[2016-10-28] MEDS: NICOTINE 21MG/24HR 1 EA TRANSDERMAL TD SCH (08:45)
[2016-10-28] MEDS: MUPIROCIN 2% OINT 22 GM TUBE TOP SCH ×2 (08:47→20:18)
--- NOTE | 2016-10-28 19:14 | IPNPDOC ---
[facility] Progress Note Progress Note DATE OF SERVICE: 10/28/16 HISTORY: Patient is 31-year-old male with history of ADHD, depression and benzodiazepine abuse, notes he had been prescribed Klonopin "for the past month, " informs principal technical writer today he did not abuse medications which is contrary to ER report at time of admission. Per ER report, patient also apparently made threatening statements to girlfriend and indicated he was going to kill himself by way of overdose, and misusing prescribed benzodiazepines. Patient reports low level anxiety and depression, denies suicidal and homicidal ideation, denies audiovisual hallucinations, denies urge to engage in self-injurious behavior. Patient is in agreement with benzodiazepine taper, indicates current medication regimen is effective and he denies medication side effects. Patient opens conversation with principal technical writer today by asking when he will be discharged, is responsive when informed discharge date has been set at this time. Patient has been visible and is attending groups. Patient drastically minimizes his symptoms and is superficially compliant, indicates he is experiencing good sleep , stable appetite, and denies challenges with concentration and focus or energy level. Patient exhibits no signs of agitation or anger. VITAL SIGNS: See below. NEW TEST RESULTS: No new results MEDICAL HISTORY: Cleft palate repair, pneumothorax/chest tube LABS AT ADMISSION: His CBC showed a hemoglobin of 13.7, hematocrit 40. Rest within normal limits. CMP is unremarkable except AST of 59. Urine drug screen is positive for benzodiazepine, cocaine and cannabis. Blood alcohol level of 0.013. EKG 10/27/16 sinus rhythm T-wave abnormality early repolarization pericarditis other no prior CURRENT MEDICATIONS: See below. MENTAL STATUS EXAMINATION: Patient is dressed in [facility]. Patient is cooperative. His speech is past and pressured. Has fair eye contact. Mood is anxious and depressed and irritated. Affect is labile and congruent with mood. Patient is oriented to time, place, person and situation. Attention and concentration are impaired. Memory is fair. Patient is fully oriented, sensations are intact, thinking is logical, and thought content is appropriate. Patient denies auditory or visual hallucinations. No evidence of delusions. Patient denies suicidal or homicidal ideation. Judgment and insight are poor. DIAGNOSES: Unspecified depressive disorder, Attention deficit hyperactivity disorder by history, polysubstance use disorder, rule out substance-induced mood disorder ASSESSMENT: Patient is adjusting to unit, has indicated that he is in agreement with benzodiazepine taper. Patient denies suicidal and homicidal thinking and is able to verbalize how to access supportive services on the unit if needed. Patient is superficially compliant and minimizes his substance use/abuse, further minimizes the events which led to his current hospitalization. Will continue to monitor patient's response to medications and benzo taper, monitor for side effects, and evaluate resolution of suicidal thinking and agitation, and discharge readiness. Patient indicates when ready he plans to discharge to home with girlfriend and participate in outpatient psychiatric services, has been encouraged to consider inpatient substance abuse treatment, patient is declining at this time. MANAGEMENT PLAN: Continue Librium taper, reduce Librium to 5 mg po BID, continue mirtazapine 45 mg po q hs, gabapentin 800 mg po TID, and Prozac 40 mg po q am Maintain safety precautions Patient to attend groups and participate in unit programming to develop coping strategies Engage patient in discharge planning process and arrange meeting with patient's support system to ensure safe discharge planning when appropriate Patient to follow up with PCM upon discharge TIME SPENT: 35 minutes. Vital Signs Vital Signs Date Time Temp Pulse Resp B/P Pulse Ox O2 Delivery O2 Flow Rate FiO2 10/28/16 09:00 Room Air 10/28/16 06:24 96.7 71 18 111/57 10/26/16 18:15 99 Laboratory Data 24H Labs Laboratory Tests 2 10/28/16 06:44: Blood Urea Nitrogen 10, Creatinine 0.91, Sodium Level 144, Potassium Level 4.2, Chloride Level 107, Carbon Dioxide Level 26, Calcium Level 8.5, Aspartate Amino Transf (AST/SGOT) 20, Alanine Aminotransferase (ALT/SGPT) 38, Alkaline Phosphatase 67, Total Bilirubin 0.2, Total Protein 6.1L, Albumin 3.2, Albumin/ Globulin Ratio 1.10, Anion Gap 11, Glomerular Filtration Rate > 60.0 CBC/BMP Laboratory Tests 10/28/16 06:44 Calcium Level 8.5, Aspartate Amino Transf (AST/SGOT) 20, Alanine Aminotransferase (ALT/SGPT) 38, Alkaline Phosphatase 67, Total Bilirubin 0.2, Total Protein 6.1 L, Albumin 3.2 Current Medications Current Medications Acetaminophen (Tylenol Tab) 650 mg Q6HP PRN PO HEADACHE or DISCOMFORT; Start at 18:00; Stop 11/25/16 at 17:59 Al Hydrox/Mg Hydrox/Simethicone (Mylanta) 30 ml Q4HP PRN PO HEARTBURN/ INDIGESTION; Start 10/26/16 at 18:00; Stop 11/25/16 at 17:59 Chlordiazepoxide (Librium) 5 mg BID PO ; Start 10/29/16 at 09:00; Stop 11/05/16 at 08:59; Status UNV Chlordiazepoxide (Librium) 10 mg BID PO Last administered on 10/28/16 08:45; Start 10/27/16 at 09:00; Stop 10/28/16 at 18:57; Status DC Chlordiazepoxide (Librium) 10 mg QHS PO ; Start 10/29/16 at 21:00; Stop 10/29/16 at 21:00; Status DC Chlordiazepoxide (Librium) 25 mg TIDP PRN PO SEE LABEL COMMENTS Last administered on 10/26/16 21:44; Start 10/26/16 at 18:00; Stop 11/02/16 at 17:59 Fluoxetine HCl (PROzac) 40 mg DAILY PO Last administered on 10/28/16 08:45; Start 10/26/16 at 09:00; Stop 11/25/16 at 08:59 Fluoxetine HCl (PROzac) 40 mg DAILY PO ; Start 10/27/16 at 09:00; Stop 10/27/16 at 09:00; Status DC Gabapentin (Neurontin) 800 mg TID PO ; Start 10/26/16 at 21:00; Stop 10/26/16 at 21:00; Status DC Gabapentin (Neurontin) 800 mg TID PO Last administered on 10/28/16 16:00; Start 10/26/16 at 21:00; Stop 11/25/16 at 20:59 Home Med (Med Rec Complete!) ASDIRECTED XX ; Start 10/26/16 at 18:15; Stop at 18:28; Status DC Home Med (Med Rec Complete!) ASDIRECTED XX ; Start 10/26/16 at 18:30; Stop at 18:39; Status DC Magnesium Hydroxide (Milk Of Magnesia) 30 ml DAILYPRN PRN PO CONSTIPATION; Start 10/26/16 at 18:00; Stop 11/25/16 at 17:59 Mirtazapine (Remeron) 45 mg QHS PO Last administered on 10/27/16 21:11; Start 10/27/16 at 21:00; Stop 11/26/16 at 20:59 Mupirocin (Bactroban 2% Ointment) 1 dose BID TOP Last administered on 10/27/16 11:24; Start 10/27/16 at 09:00; Stop 11/26/16 at 08:59 Nicotine (Nicoderm Cq 21mg) 1 patch DAILY TD Last administered on 10/28/16 08: 45; Start 10/26/16 at 09:00; Stop 11/25/16 at 08:59 Trazodone HCl (Desyrel) 100 mg QHSP PRN PO INSOMNIA Last administered on 20:23; Start 10/26/16 at 18:00; Stop 11/25/16 at 17:59 Allergies Coded Allergies: No Known Allergies (Unverified , 05/17/16) Shameka Sidhu Oct 28, 2016 19:14
[2016-10-28] MEDS: MIRTAZAPINE 15 MG TAB PO SCH (20:17)
[2016-10-28 22:14] VITALS: BP 124/64
[2016-10-29 06:11] VITALS: BP 103/51
[2016-10-29] MEDS: MUPIROCIN 2% OINT 22 GM TUBE TOP SCH ×2 (08:46→20:43)
[2016-10-29] MEDS: NICOTINE 21MG/24HR 1 EA TRANSDERMAL TD SCH (08:49)
[2016-10-29] MEDS: FLUoxetine 20 MG CAP PO SCH (08:50)
[2016-10-29] MEDS: GABAPENTIN 400 MG CAP PO SCH ×3 (08:50→20:39)
--- NOTE | 2016-10-29 13:29 | IPNPDOC ---
[facility] Progress Note Progress Note DATE OF SERVICE: 10/29/16 HISTORY: Patient is 31-year-old male with history of ADHD, depression and benzodiazepine abuse, notes he had been prescribed Klonopin X 1 month, denies abusing medications which is contrary to ER intake report. Sterile Instrument Technician met with patient today to assess treatment progress on the inpatient unit. Patient remains isolative to room stating, "I don't like groups and closed up spaces, it stems from me being in shelter." Patient reports reduced anxiety and depression , denies suicidal and homicidal ideation, denies audiovisual hallucinations, denies urge to engage in self-injurious behavior. Patient engages poorly for interaction, is superficially bright, superficially compliant, and minimizes symptoms and substance abuse. Patient remains in agreement with benzodiazepine taper, adds medication regimen remains effective and denies medication side effects. Patient denies challenges with sleep, concentration, or energy level, states appetite is improving. Patient remains fixated on discharge, notes he is disinterested in substance abuse treatment, but will resume treatment with previous outpatient provider upon discharge from hospital. Patient exhibits no signs of agitation or anger. VITAL SIGNS: See below. NEW TEST RESULTS: No new results MEDICAL HISTORY: Cleft palate repair, pneumothorax/chest tube LABS AT ADMISSION: His CBC showed a hemoglobin of 13.7, hematocrit 40. Rest within normal limits. CMP is unremarkable except AST of 59. Urine drug screen is positive for benzodiazepine, cocaine and cannabis. Blood alcohol level of 0.013. EKG 10/27/16 sinus rhythm T-wave abnormality early repolarization pericarditis other no prior CURRENT MEDICATIONS: See below. MENTAL STATUS EXAMINATION ON DISCHARGE: Patient is a 31 -year-old male who is pleasant and superficially cooperative, appears mildly disheveled, makes fair eye contact, ambulates with steady gait, appears stated age Speech is mildly pressured, otherwise generally normal rhythm and volume, coherent. Language skills are intact. Thought processes including: Clear, goal-directed, fixated on discharge Thought content: Rational, logical. Abstract reasoning, and computation: Requires further evaluation. Description of associations: Appear intact. Description of abnormal or psychotic thoughts: denies hallucinations, delusions , preoccupation with violence, homicidal or suicidal ideation, and obsessions]. Judgment: Poor. Insight: Poor. Orientation to [time, place and person]. Recent and remote memory: [Immediate, short-term and long-term memory appear intact]. Attention span and concentration: Limited. Language: [Normal]. Fund of knowledge: Adequate. Mood: "I feel fine, no problems with me." Patient appears less depressed and anxious, no mood lability noted, is superficially compliant, demise his symptoms Affect: Constricted, generally congruent with mood DIAGNOSES: Unspecified depressive disorder, Attention deficit hyperactivity disorder by history, polysubstance use disorder, rule out substance-induced mood disorder ASSESSMENT: Patient continues to adjust to unit, is observed to be visible on unit at times, otherwise isolates to room, has not been attending groups. Patient denies suicidal and homicidal thinking and is able to verbalize how to access supportive services on the unit if needed. Patient is superficially compliant and minimizes his substance use/abuse, further minimizes the events which led to his current hospitalization. Will continue to monitor patient's response to medications and benzo taper, monitor for side effects, and evaluate resolution of suicidal thinking and agitation, and discharge readiness. Patient indicates when ready he plans to discharge to home with girlfriend and participate in outpatient psychiatric services, has been encouraged to consider inpatient substance abuse treatment, patient is declining at this time. MANAGEMENT PLAN: Continue Librium taper: Librium to 5 mg po BID, continue mirtazapine 45 mg po q hs, gabapentin 800 mg po TID, and Prozac 40 mg po q am Maintain safety precautions Patient to attend groups and participate in unit programming to develop coping strategies Engage patient in discharge planning process and arrange meeting with patient's support system to ensure safe discharge planning when appropriate Patient to follow up with PCM upon discharge TIME SPENT: 35 minutes. Vital Signs Vital Signs Date Time Temp Pulse Resp B/P Pulse Ox O2 Delivery O2 Flow Rate FiO2 10/29/16 06:11 96.1 62 18 103/51 10/28/16 09:00 Room Air 10/26/16 18:15 99 Current Medications Current Medications Acetaminophen (Tylenol Tab) 650 mg Q6HP PRN PO HEADACHE or DISCOMFORT; Start at 18:00; Stop 11/25/16 at 17:59 Al Hydrox/Mg Hydrox/Simethicone (Mylanta) 30 ml Q4HP PRN PO HEARTBURN/ INDIGESTION; Start 10/26/16 at 18:00; Stop 11/25/16 at 17:59 Chlordiazepoxide (Librium) 5 mg BID PO Last administered on 10/29/16 08:50; Start 10/29/16 at 09:00; Stop 11/05/16 at 08:59 Chlordiazepoxide (Librium) 10 mg BID PO Last administered on 10/28/16 08:45; Start 10/27/16 at 09:00; Stop 10/28/16 at 18:57; Status DC Chlordiazepoxide (Librium) 10 mg QHS PO ; Start 10/29/16 at 21:00; Stop 10/29/16 at 21:00; Status DC Chlordiazepoxide (Librium) 25 mg TIDP PRN PO SEE LABEL COMMENTS Last administered on 10/26/16 21:44; Start 10/26/16 at 18:00; Stop 11/02/16 at 17:59 Fluoxetine HCl (PROzac) 40 mg DAILY PO Last administered on 10/29/16 08:50; Start 10/26/16 at 09:00; Stop 11/25/16 at 08:59 Fluoxetine HCl (PROzac) 40 mg DAILY PO ; Start 10/27/16 at 09:00; Stop 10/27/16 at 09:00; Status DC Gabapentin (Neurontin) 800 mg TID PO ; Start 10/26/16 at 21:00; Stop 10/26/16 at 21:00; Status DC Gabapentin (Neurontin) 800 mg TID PO Last administered on 10/29/16 08:50; Start 10/26/16 at 21:00; Stop 11/25/16 at 20:59 Home Med (Med Rec Complete!) ASDIRECTED XX ; Start 10/26/16 at 18:15; Stop at 18:28; Status DC Home Med (Med Rec Complete!) ASDIRECTED XX ; Start 10/26/16 at 18:30; Stop at 18:39; Status DC Magnesium Hydroxide (Milk Of Magnesia) 30 ml DAILYPRN PRN PO CONSTIPATION; Start 10/26/16 at 18:00; Stop 11/25/16 at 17:59 Mirtazapine (Remeron) 45 mg QHS PO Last administered on 10/28/16 20:17; Start 10/27/16 at 21:00; Stop 11/26/16 at 20:59 Mupirocin (Bactroban 2% Ointment) 1 dose BID TOP Last administered on 10/27/16 11:24; Start 10/27/16 at 09:00; Stop 11/26/16 at 08:59 Nicotine (Nicoderm Cq 21mg) 1 patch DAILY TD Last administered on 10/29/16 08: 49; Start 10/26/16 at 09:00; Stop 11/25/16 at 08:59 Trazodone HCl (Desyrel) 100 mg QHSP PRN PO INSOMNIA Last administered on 20:23; Start 10/26/16 at 18:00; Stop 10/28/16 at 19:14; Status DC Allergies Coded Allergies: No Known Allergies (Unverified , 05/17/16) Shameka Sidhu Oct 29, 2016 13:29
[2016-10-29 18:00] VITALS: BP 124/60
[2016-10-29] MEDS: MIRTAZAPINE 15 MG TAB PO SCH (20:39)
[2016-10-30 06:32] VITALS: BP 106/69
[2016-10-30] MEDS: MUPIROCIN 2% OINT 22 GM TUBE TOP SCH ×2 (08:54→20:34)
[2016-10-30] MEDS: FLUoxetine 20 MG CAP PO SCH (08:58)
[2016-10-30] MEDS: NICOTINE 21MG/24HR 1 EA TRANSDERMAL TD SCH (08:58)
[2016-10-30] MEDS: GABAPENTIN 400 MG CAP PO SCH ×3 (08:58→20:36)
--- NOTE | 2016-10-30 14:41 | IPNPDOC ---
[facility] Progress Note Progress Note DATE OF SERVICE: 10/30/16 HISTORY: Patient is 31-year-old male with history of ADHD, depression and benzodiazepine abuse, notes he had been prescribed Klonopin X 1 month, denies abusing medications which is contrary to ER intake report. Jukebox Coin Collector met with patient today to assess treatment progress on the inpatient unit. Patient states he has been making more effort to be visible on unit and attend groups, though reiterates today, "I don't like groups and closed up spaces, it stems from me being in long term." Patient reports reduced anxiety and depression, denies suicidal and homicidal ideation, denies audiovisual hallucinations, denies urge to engage in self-injurious behavior. Patient is on Librium taper and denies symptoms of craving or withdrawal. Patient engages better today for interaction , is less superficially bright, less superficially compliant, expresses somewhat less minimization of symptoms and history of substance abuse. Patient remains in agreement with benzodiazepine taper, adds medication regimen remains effective and denies medication side effects. Patient denies challenges with sleep, concentration, or energy level, states appetite is improving. Patient remains fixated on discharge, indicates today he is considering participating in substance abuse treatment, remains interested in resuming treatment with previous outpatient provider upon discharge from hospital. Patient exhibits no signs of agitation or anger, denies symptoms physical pain, and presents with no indication of acute distress at time of interaction. VITAL SIGNS: See below. NEW TEST RESULTS: No new results MEDICAL HISTORY: Cleft palate repair, pneumothorax/chest tube LABS AT ADMISSION: His CBC showed a hemoglobin of 13.7, hematocrit 40. Rest within normal limits. CMP is unremarkable except AST of 59. Urine drug screen is positive for benzodiazepine, cocaine and cannabis. Blood alcohol level of 0.013. EKG 10/27/16 sinus rhythm T-wave abnormality early repolarization pericarditis other no prior CURRENT MEDICATIONS: See below. MENTAL STATUS EXAMINATION ON DISCHARGE: Patient is a 31 -year-old male who is pleasant and somewhat less superficially cooperative, appears somewhat less disheveled, makes fair eye contact, ambulates with steady gait, appears stated age Speech is less pressured, generally normal rhythm and volume, coherent. Language skills are intact. Thought processes including: Clear, goal-directed, fixated on discharge Thought content: Rational, logical. Abstract reasoning, and computation: Requires further evaluation. Description of associations: Appear intact. Description of abnormal or psychotic thoughts: denies hallucinations, delusions , preoccupation with violence, homicidal or suicidal ideation, and obsessions]. Judgment: Poor, verbalizes some improvement. Insight: Poor, expresses some improvement Orientation to time, place and person. Recent and remote memory: Immediate, short-term and long-term memory appear intact. Attention span and concentration: Limited, some improvement. Language: Normal. Fund of knowledge: Adequate. Mood: "I feel fine." Patient appears less depressed and anxious, no mood lability noted, is superficially compliant, demise his symptoms Affect: Constricted, generally congruent with mood DIAGNOSES: Unspecified depressive disorder, Attention deficit hyperactivity disorder by history, polysubstance use disorder, rule out substance-induced mood disorder ASSESSMENT: Patient continues to adjust to unit, is observed to be somewhat more visible on unit, isolates to room less, has been making increased effort to attend groups. Patient denies suicidal and homicidal thinking and is able to verbalize how to access supportive services on the unit if needed. Patient is less superficially compliant and is minimizing less his substance use/abuse, seems to be beginning to understand the gravity of events which led to his current hospitalization. Will continue to monitor patient's response to medications and benzo taper, monitor for side effects, and evaluate resolution of suicidal thinking and agitation, and discharge readiness. Patient indicates when ready he plans to discharge to home with girlfriend and participate in outpatient psychiatric services, has been encouraged to consider inpatient substance abuse treatment, patient is declining at this time but agrees to consider. MANAGEMENT PLAN: Continue Librium taper: Librium to 5 mg po BID to end tonight after 2100 dose, thereafter 5 mg po hs X 1 on Thursday then stop. Continue mirtazapine 45 mg po q hs, gabapentin 800 mg po TID, and Prozac 40 mg po q am Maintain safety precautions Patient to attend groups and participate in unit programming to develop coping strategies Engage patient in discharge planning process and arrange meeting with patient's support system to ensure safe discharge planning when appropriate Patient to follow up with PCM upon discharge TIME SPENT: 25 minutes. Vital Signs Vital Signs Date Time Temp Pulse Resp B/P Pulse Ox O2 Delivery O2 Flow Rate FiO2 10/30/16 06:32 95.4 66 16 106/69 10/28/16 09:00 Room Air 10/26/16 18:15 99 Current Medications Current Medications Acetaminophen (Tylenol Tab) 650 mg Q6HP PRN PO HEADACHE or DISCOMFORT; Start at 18:00; Stop 11/25/16 at 17:59 Al Hydrox/Mg Hydrox/Simethicone (Mylanta) 30 ml Q4HP PRN PO HEARTBURN/ INDIGESTION; Start 10/26/16 at 18:00; Stop 11/25/16 at 17:59 Chlordiazepoxide (Librium) 5 mg BID PO Last administered on 10/30/16 08:58; Start 10/29/16 at 09:00; Stop 10/30/16 at 14:34; Status DC Chlordiazepoxide (Librium) 5 mg BID PO ; Start 10/30/16 at 22:00; Stop 11/06/16 at 21:59; Status UNV Chlordiazepoxide (Librium) 5 mg QHS PO ; Start 10/31/16 at 21:00; Stop 10/31/16 at 22:00; Status UNV Chlordiazepoxide (Librium) 10 mg BID PO Last administered on 10/28/16 08:45; Start 10/27/16 at 09:00; Stop 10/28/16 at 18:57; Status DC Chlordiazepoxide (Librium) 10 mg QHS PO ; Start 10/29/16 at 21:00; Stop 10/29/16 at 21:00; Status DC Chlordiazepoxide (Librium) 25 mg TIDP PRN PO SEE LABEL COMMENTS Last administered on 10/26/16 21:44; Start 10/26/16 at 18:00; Stop 11/02/16 at 17:59 Fluoxetine HCl (PROzac) 40 mg DAILY PO Last administered on 10/30/16 08:58; Start 10/26/16 at 09:00; Stop 11/25/16 at 08:59 Fluoxetine HCl (PROzac) 40 mg DAILY PO ; Start 10/27/16 at 09:00; Stop 10/27/16 at 09:00; Status DC Gabapentin (Neurontin) 800 mg TID PO ; Start 10/26/16 at 21:00; Stop 10/26/16 at 21:00; Status DC Gabapentin (Neurontin) 800 mg TID PO Last administered on 10/30/16 08:58; Start 10/26/16 at 21:00; Stop 11/25/16 at 20:59 Home Med (Med Rec Complete!) ASDIRECTED XX ; Start 10/26/16 at 18:15; Stop at 18:28; Status DC Home Med (Med Rec Complete!) ASDIRECTED XX ; Start 10/26/16 at 18:30; Stop at 18:39; Status DC Magnesium Hydroxide (Milk Of Magnesia) 30 ml DAILYPRN PRN PO CONSTIPATION; Start 10/26/16 at 18:00; Stop 11/25/16 at 17:59 Mirtazapine (Remeron) 45 mg QHS PO Last administered on 10/29/16 20:39; Start 10/27/16 at 21:00; Stop 11/26/16 at 20:59 Mupirocin (Bactroban 2% Ointment) 1 dose BID TOP Last administered on 10/27/16 11:24; Start 10/27/16 at 09:00; Stop 11/26/16 at 08:59 Nicotine (Nicoderm Cq 21mg) 1 patch DAILY TD Last administered on 10/30/16 08: 58; Start 10/26/16 at 09:00; Stop 11/25/16 at 08:59 Trazodone HCl (Desyrel) 100 mg QHSP PRN PO INSOMNIA Last administered on 20:23; Start 10/26/16 at 18:00; Stop 10/28/16 at 19:14; Status DC Allergies Coded Allergies: No Known Allergies (Unverified , 05/17/16) Shameka Sidhu Oct 30, 2016 14:41
[2016-10-30 18:00] VITALS: BP 127/60
[2016-10-30] MEDS: MIRTAZAPINE 15 MG TAB PO SCH (20:36)
[2016-10-31 06:38] VITALS: BP 111/57
[2016-10-31] MEDS: GABAPENTIN 400 MG CAP PO SCH ×3 (08:17→20:34)
[2016-10-31] MEDS: NICOTINE 21MG/24HR 1 EA TRANSDERMAL TD SCH (08:17)
[2016-10-31] MEDS: FLUoxetine 20 MG CAP PO SCH (08:17)
[2016-10-31] MEDS: MUPIROCIN 2% OINT 22 GM TUBE TOP SCH ×2 (08:18→20:32)
--- NOTE | 2016-10-31 14:26 | IPNPDOC ---
[facility] Progress Note Progress Note DATE OF SERVICE: 10/31/16 HISTORY: Patient is 31-year-old male with history of ADHD, depression and benzodiazepine abuse, notes he had been prescribed Klonopin X 1 month, denies abusing medications which is contrary to ER intake report. Manager Chemical met with patient today to assess treatment progress on the inpatient unit. Patient states he continues to make more effort to be visible on unit and attend groups , reiterates today, "you know, I don't like closed up spaces from being in assisted. " Patient today denies symptoms of anxiety and depression, denies suicidal and homicidal ideation, denies audiovisual hallucinations, denies urge to engage in self-injurious behavior. Patient is on Librium taper and denies symptoms of craving or withdrawal. Patient engages better today for interaction, is less superficially bright, less superficially compliant, today verbalizes insight retaining to history of drug and alcohol abuse, speaks openly with proposal manager writer about girlfriend who recently temporarily moved to [facility] due to patient's substance abuse. Patient indicates his girlfriend is now willing to reengage with patient and patient states he is hopeful that he will remain clean and sober so that he can participate in a [employer] chip. Patient adds medication regimen remains effective and denies medication side effects. Patient denies challenges with sleep, concentration, or energy level, states appetite is improving. Patient is less fixated on discharge today, states he is hopeful he will be discharged Thursday and today verbalizes agreement that he could benefit from outpatient substance abuse treatment, states he is willing to [facility], and [facility], and AA. Patient exhibits no signs of agitation or anger, denies symptoms physical pain, and presents with no indication of acute distress at time of interaction. VITAL SIGNS: See below. NEW TEST RESULTS: No new results MEDICAL HISTORY: Cleft palate repair, pneumothorax/chest tube LABS AT ADMISSION: His CBC showed a hemoglobin of 13.7, hematocrit 40. Rest within normal limits. CMP is unremarkable except AST of 59. Urine drug screen is positive for benzodiazepine, cocaine and cannabis. Blood alcohol level of 0.013. EKG 10/27/16 sinus rhythm T-wave abnormality early repolarization pericarditis other no prior CURRENT MEDICATIONS: See below. MENTAL STATUS EXAMINATION ON DISCHARGE: Patient is a 31 -year-old male who is pleasant and less superficially cooperative, appears less disheveled, is dressed in hospital clothing, makes improved eye contact, ambulates with steady gait, appears stated age Speech is of normal rate, rhythm, volume, coherent, more spontaneous Language skills are intact. Thought processes including: Clear, goal-directed, fixated on discharge Thought content: Rational, logical. Abstract reasoning: Adequate Description of associations: Appear intact. Description of abnormal or psychotic thoughts: denies hallucinations, delusions , preoccupation with violence, homicidal or suicidal ideation, and obsessions]. Judgment: Limited, continues to improve Insight: Limited, continues to improve expresses some improvement Orientation to time, place and person. Recent and remote memory: Immediate, short-term and long-term memory appear intact. Attention span and concentration: Limited, some improvement. Language: Normal. Fund of knowledge: Adequate. Mood: "I feel better. I want to be clean and sober." Patient appears less depressed and anxious, no mood lability noted, is superficially compliant, demise his symptoms Affect: Constricted, brightens at times appropriately, generally congruent with mood DIAGNOSES: Unspecified depressive disorder, Attention deficit hyperactivity disorder by history, polysubstance use disorder, rule out substance-induced mood disorder ASSESSMENT: Patient continues to adjust to unit, is observed to be somewhat more visible on unit, isolates to room less, has been making increased effort to attend groups. Patient denies suicidal and homicidal thinking and is able to verbalize how to access supportive services on the unit if needed. Patient is less superficially compliant and is minimizing less his substance use/abuse, seems to be making progress in terms of understanding the gravity of events which led to his current hospitalization. Will continue to monitor patient's response to medications and benzo taper, hydroxyzine added in the event patient experiences anxiety over weekend, patient indicates he has taken before with good effect. Will continue to monitor for medication side effects, evaluate resolution of suicidal thinking and agitation, patient safety and discharge readiness. Patient indicates when ready he plans to discharge to home with girlfriend and participate in outpatient psychiatric services, has been encouraged to consider inpatient substance abuse treatment, patient is declining at this time but agrees to consider. MANAGEMENT PLAN: Continue Librium taper: Librium to 5 mg po tonight then stop. Continue mirtazapine 45 mg po q hs, gabapentin 800 mg po TID, and Prozac 40 mg po q am. Initiate hydroxyzine 50 mg po q 8 hours PRN anxiety. Maintain safety precautions Patient to attend groups and participate in unit programming to develop coping strategies Engage patient in discharge planning process and arrange meeting with patient's support system to ensure safe discharge planning when appropriate Patient to follow up with PCM upon discharge TIME SPENT: 35 minutes. Vital Signs Vital Signs Date Time Temp Pulse Resp B/P Pulse Ox O2 Delivery O2 Flow Rate FiO2 10/31/16 06:38 96.8 66 16 111/57 10/28/16 09:00 Room Air 10/26/16 18:15 99 Current Medications Current Medications Acetaminophen (Tylenol Tab) 650 mg Q6HP PRN PO HEADACHE or DISCOMFORT Last administered on 10/30/16 14:50; Start 10/26/16 at 18:00; Stop 11/25/16 at 17:59 Al Hydrox/Mg Hydrox/Simethicone (Mylanta) 30 ml Q4HP PRN PO HEARTBURN/ INDIGESTION; Start 10/26/16 at 18:00; Stop 11/25/16 at 17:59 Chlordiazepoxide (Librium) 5 mg BID PO Last administered on 10/30/16 20:36; Start 10/29/16 at 09:00; Stop 10/30/16 at 23:59; Status DC Chlordiazepoxide (Librium) 5 mg BID PO ; Start 10/30/16 at 22:00; Stop 10/30/16 at 22:00; Status DC Chlordiazepoxide (Librium) 5 mg QHS PO ; Start 10/31/16 at 21:00; Stop 10/31/16 at 23:59 Chlordiazepoxide (Librium) 10 mg BID PO Last administered on 10/28/16 08:45; Start 10/27/16 at 09:00; Stop 10/28/16 at 18:57; Status DC Chlordiazepoxide (Librium) 10 mg QHS PO ; Start 10/29/16 at 21:00; Stop 10/29/16 at 21:00; Status DC Chlordiazepoxide (Librium) 25 mg TIDP PRN PO SEE LABEL COMMENTS Last administered on 10/26/16 21:44; Start 10/26/16 at 18:00; Stop 11/02/16 at 17:59 Fluoxetine HCl (PROzac) 40 mg DAILY PO Last administered on 10/31/16 08:17; Start 10/26/16 at 09:00; Stop 11/25/16 at 08:59 Fluoxetine HCl (PROzac) 40 mg DAILY PO ; Start 10/27/16 at 09:00; Stop 10/27/16 at 09:00; Status DC Gabapentin (Neurontin) 800 mg TID PO ; Start 10/26/16 at 21:00; Stop 10/26/16 at 21:00; Status DC Gabapentin (Neurontin) 800 mg TID PO Last administered on 10/31/16 08:17; Start 10/26/16 at 21:00; Stop 11/25/16 at 20:59 Home Med (Med Rec Complete!) ASDIRECTED XX ; Start 10/26/16 at 18:15; Stop at 18:28; Status DC Home Med (Med Rec Complete!) ASDIRECTED XX ; Start 10/26/16 at 18:30; Stop at 18:39; Status DC Magnesium Hydroxide (Milk Of Magnesia) 30 ml DAILYPRN PRN PO CONSTIPATION; Start 10/26/16 at 18:00; Stop 11/25/16 at 17:59 Mirtazapine (Remeron) 45 mg QHS PO Last administered on 10/30/16 20:36; Start 10/27/16 at 21:00; Stop 11/26/16 at 20:59 Mupirocin (Bactroban 2% Ointment) 1 dose BID TOP Last administered on 10/27/16 11:24; Start 10/27/16 at 09:00; Stop 11/26/16 at 08:59 Nicotine (Nicoderm Cq 21mg) 1 patch DAILY TD Last administered on 10/31/16 08: 17; Start 10/26/16 at 09:00; Stop 11/25/16 at 08:59 Trazodone HCl (Desyrel) 100 mg QHSP PRN PO INSOMNIA Last administered on 20:23; Start 10/26/16 at 18:00; Stop 10/28/16 at 19:14; Status DC Allergies Coded Allergies: No Known Allergies (Unverified , 05/17/16) Shameka Sidhu Oct 31, 2016 14:26
[2016-10-31] MEDS ORDERED: hydrOXYzine 50 MG TAB PO PRN (16:00)
[2016-10-31 18:00] VITALS: BP 125/60
[2016-10-31] MEDS ORDERED: chlordiazePOXIDE 25 MG CAP PO PRN (19:30)
[2016-10-31] MEDS: MIRTAZAPINE 15 MG TAB PO SCH (20:33)
[2016-11-01 07:03] VITALS: BP 115/58
[2016-11-01] MEDS: MUPIROCIN 2% OINT 22 GM TUBE TOP SCH ×2 (07:58→20:29)
[2016-11-01] MEDS: NICOTINE 21MG/24HR 1 EA TRANSDERMAL TD SCH (08:00)
[2016-11-01] MEDS: GABAPENTIN 400 MG CAP PO SCH ×3 (08:00→20:29)
[2016-11-01] MEDS: FLUoxetine 20 MG CAP PO SCH (08:00)
[2016-11-01 18:00] VITALS: BP 137/81
[2016-11-01] MEDS: MIRTAZAPINE 15 MG TAB PO SCH (20:28)
[2016-11-02 06:47] VITALS: BP 119/77
[2016-11-02] MEDS: MUPIROCIN 2% OINT 22 GM TUBE TOP SCH ×2 (09:00→20:22)
[2016-11-02] MEDS: FLUoxetine 20 MG CAP PO SCH (09:43)
[2016-11-02] MEDS: GABAPENTIN 400 MG CAP PO SCH ×3 (09:43→20:24)
[2016-11-02] MEDS: NICOTINE 21MG/24HR 1 EA TRANSDERMAL TD SCH (09:44)
[2016-11-02 18:00] VITALS: BP 127/65
[2016-11-02] MEDS: MIRTAZAPINE 15 MG TAB PO SCH (20:24)
[2016-11-03 06:30] VITALS: BP 137/77
[2016-11-03] MEDS: FLUoxetine 20 MG CAP PO SCH (08:35)
[2016-11-03] MEDS: GABAPENTIN 400 MG CAP PO SCH (08:35)
[2016-11-03] MEDS: NICOTINE 21MG/24HR 1 EA TRANSDERMAL TD SCH (08:35)
[2016-11-03] MEDS: MUPIROCIN 2% OINT 22 GM TUBE TOP SCH (08:36)
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
[2016-11-03] MEDS ORDERED: MIRT15TA3 PO (09:57)
[2016-11-03] MEDS ORDERED: FLUO20CA9 PO (09:57)
[2016-11-03] MEDS ORDERED: NICO21PAT TD (10:09)
== END 2016-11-03 10:45 | disposition home or self-care (01) | DRG 754 ==
LOC: M ED 17:37 → M PSY 18:30
PROVIDERS: ADMIT Psychiatry & Neurology Psychiatry; ATTEND Internal Medicine Addiction Medicine
DX: F32.9 Major depressive disorder, single episode, unspecified (principal); F17.200 Nicotine dependence, unspecified, uncomplicated; F90.9 Attention-deficit hyperactivity disorder, unspecified type; Z79.899 Other long term (current) drug therapy; F12.90 Cannabis use, unspecified, uncomplicated; F14.90 Cocaine use, unspecified, uncomplicated

== ENCOUNTER 2016-11-30 00:35 | Emergency (ER) | payer OTHER ==
[~2016-11-30] VITALS: Ht 147.3 cm; Wt 68.0 kg
[~2016-11-30 00:35] MED LIST changes: +GABA-282 PO; +GABA-283 PO; -GABA300C3 PO; +GABA800T PO; +KLON0.5T PO; +MIRT15TA3 PO; +NICO21PAT TD; +PROZ40CA PO; +REME45TA PO; +TRAZ50TA4 PO
[2016-11-30] MEDS ORDERED: KLON0.5T PO ×2 (00:47→03:57)
[2016-11-30] MEDS ORDERED: MORPHINE 4 MG/ML 1ML SYRINGE IV ONE (02:15)
[2016-11-30 03:10] VITALS: BP 125/68
[2016-11-30] MEDS ORDERED: OXYC-517 PO (03:57)
--- NOTE | 2016-11-30 10:29 | REP ---
PA LATERAL CHEST: 11/30/2016. Comparison: 10/21/2016, 08/11/2009. Clinical history: Left-sided chest pain. Lungs somewhat hypoinflated with some crowded markings in the bases. Some mild bibasilar patchy atelectasis or early infiltrate without dense consolidation or air bronchograms. Peribronchial thickening that might reflect reactive airway disease or bronchitis. No effusion or lateral pleural thickening. No pneumothorax. Heart size not enlarged for this degree of inflation. The aorta is mildly tortuous. Airway is intact. Impression: 1. Basilar atelectatic or infiltrative change bilaterally, mild. No dense consolidation with air bronchograms. Hypoinflated chest. No cardiomegaly or pulmonary edema. No definite effusion. 2. No mediastinal or hilar abnormality. Signed by Rodrigo Mir MD 11/30/2016 10:55 A
--- NOTE | 2016-11-30 21:07 | ECGEPIP ---
Stationary ECG Study [facility] - ED Test Date: 2016-11-30 Pat Name: DARRYL MULLER Department: Room: - Gender: M [employer] B[employer]: mr : 1985 Requested By: TORSTEN Martínez Order Number: [id number] Reading MD: Ama Foy Measurements Intervals [place] Rate: 92 P: 46 CA: 122 QRS: 49 QRSD: 93 T: 7 QT: 346 QTc: 430 Interpretive Statements SINUS RHYTHM POSSIBLE RIGHT VENTRICULAR CONDUCTION DELAY NONSPECIFIC T-WAVE ABNORMALITY INCREASED RATE 10/27/16 Electronically Signed On 11-30-2016 21:07:02 EDT by Ama Foy
== END 2016-11-30 04:11 | disposition home or self-care (01) ==
LOC: M ED 02:44
DX: R07.89 Other chest pain (principal); F17.210 Nicotine dependence, cigarettes, uncomplicated; Z88.0 Allergy status to penicillin; Z88.8 Allergy status to other drugs, medicaments and biological substances; Z79.899 Other long term (current) drug therapy; F41.9 Anxiety disorder, unspecified; F32.9 Major depressive disorder, single episode, unspecified; F90.9 Attention-deficit hyperactivity disorder, unspecified type

== ENCOUNTER 2016-12-08 13:00 | Emergency (ER) | payer OTHER ==
[~2016-12-08] VITALS: Ht 154.9 cm; Wt 68.9 kg
[2016-12-08 13:00] VITALS: BP 148/83
[~2016-12-08 13:00] MED LIST changes: +OXYC-517 PO
[2016-12-08] MEDS ORDERED: MIRT45TA PO (13:54)
[2016-12-08] MEDS ORDERED: KLON0.5T PO (13:54)
[2016-12-08] MEDS ORDERED: FLUO40CA PO (13:54)
[2016-12-08] MEDS ORDERED: OXYC-517 PO (13:54)
== END 2016-12-08 14:16 | disposition home or self-care (01) ==
LOC: M ED 14:08
DX: Z76.0 Encounter for issue of repeat prescription (principal); F17.200 Nicotine dependence, unspecified, uncomplicated; F41.9 Anxiety disorder, unspecified; F32.9 Major depressive disorder, single episode, unspecified; F90.9 Attention-deficit hyperactivity disorder, unspecified type; F43.10 Post-traumatic stress disorder, unspecified; Z79.899 Other long term (current) drug therapy; Z88.0 Allergy status to penicillin; Z88.6 Allergy status to analgesic agent

== ENCOUNTER → 2016-12-23 | Outpatient (REF) | payer MEDICAID, OTHER ==
[~2016-12-23] MED LIST changes: +FLUO40CA PO; +MIRT45TA PO
== END ==
LOC: M LAB REF 11:47
PROVIDERS: ATTEND Family Medicine Addiction Medicine
DX: R07.89 Other chest pain (principal); F41.1 Generalized anxiety disorder

== ENCOUNTER 2017-01-17 21:36 | Emergency (ER) | payer OTHER ==
[~2017-01-17] VITALS: Ht 154.9 cm; Wt 63.5 kg
[2017-01-18 02:59] VITALS: BP 130/70
[2017-01-18] MEDS ORDERED: traMADol 50 MG TAB PO ONE (03:00)
== END 2017-01-18 03:04 | disposition home or self-care (01) ==
LOC: M ED 22:31
DX: Z76.5 Malingerer [conscious simulation] (principal); F31.9 Bipolar disorder, unspecified; F17.200 Nicotine dependence, unspecified, uncomplicated; Z79.899 Other long term (current) drug therapy; Z88.8 Allergy status to other drugs, medicaments and biological substances

== ENCOUNTER 2017-02-14 19:20 | Emergency (ER) | payer OTHER ==
[~2017-02-14] VITALS: Ht 165.1 cm; Wt 61.0 kg
[~2017-02-14 19:20] MED LIST changes: +FLUO20CA19 PO; -FLUO20CA9 PO; -HYDR-4274 PO; +HYDR50TA70 PO; +TRAZ50TA11 PO; -TRAZ50TA4 PO
[2017-02-14] MEDS ORDERED: OXYC-517 PO (20:20)
[2017-02-14] MEDS ORDERED: PRED20TA PO (20:21)
[2017-02-14] MEDS ORDERED: OXYCODONE/APAP 5MG/325MG(BULK FOR ED) 1 TABLET PO ONE (20:30)
[2017-02-14] MEDS ORDERED: methylPREDNISolone INJ 40 MG/1 ML VIAL (J2920) IV ONE (20:30)
[2017-02-14] MEDS ORDERED: MORPHINE 2 MG/ML 1ML SYRINGE IV ONE (20:30)
[2017-02-14 20:58] VITALS: BP 120/68
== END 2017-02-14 20:59 | disposition home or self-care (01) ==
LOC: EDBD 19:20 → M ED 20:32
DX: R07.89 Other chest pain (principal); Z79.899 Other long term (current) drug therapy; Z88.0 Allergy status to penicillin; Z88.5 Allergy status to narcotic agent; Z88.8 Allergy status to other drugs, medicaments and biological substances

== ENCOUNTER 2017-02-15 16:09 | Emergency (ER) | payer OTHER ==
[~2017-02-15] VITALS: Ht 154.9 cm; Wt 61.4 kg
[~2017-02-15 16:09] MED LIST changes: +PRED20TA PO
[2017-02-15 16:10] VITALS: BP 126/68
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
== END 2017-02-15 18:16 | disposition home or self-care (01) ==
LOC: M ED 17:43
DX: G89.28 Other chronic postprocedural pain (principal); F41.9 Anxiety disorder, unspecified; F32.9 Major depressive disorder, single episode, unspecified; F17.210 Nicotine dependence, cigarettes, uncomplicated; Z79.52 Long term (current) use of systemic steroids; Z79.899 Other long term (current) drug therapy

== ENCOUNTER → 2017-12-22 | Outpatient (REF) | payer OTHER ==
[2017-12-22 20:54] LABS: AMPHETAMINES URINE REFLEX NEGATIVE (NEGATIVE); BARBITURATES URINE REFLEX NEGATIVE (NEGATIVE); BENZODIAZEPINES URINE REFLEX NEGATIVE (NEGATIVE); CANNABINOIDS URINE REFLEX NEGATIVE (NEGATIVE); COCAINE METABOLITE URINE REFLE NEGATIVE (NEGATIVE); METHADONE URINE REFLEX NEGATIVE (NEGATIVE); PHENCYCLIDINE URINE REFLEX NEGATIVE (NEGATIVE)
[2017-12-22 21:03] LABS: OPIATES URINE REFLEX PENDING CONFIRMATION (NEGATIVE)
== END ==
LOC: M LAB REF 19:00
DX: R07.89 Other chest pain (principal); F41.1 Generalized anxiety disorder

== ENCOUNTER 2020-02-04 13:22 | Emergency (ER) | payer OTHER ==
[~2020-02-04] VITALS: Ht 154.9 cm; Wt 74.2 kg
[~2020-02-04 13:22] MED LIST changes: -CLON0.5T PO; +CLON0.5T2 PO; -FLUO20CA19 PO; +FLUO20CA22 PO; -GABA-282 PO; -GABA-283 PO; +GABA-843 PO; +GABA-845 PO; -GABA800T PO; +GABA800T4 PO; -MIRT45TA PO; +MIRT45TA4 PO; +TRAZ-252 PO; -TRAZ50TA11 PO
[2020-02-04] MEDS ORDERED: GABA-1171 (13:30)
[2020-02-04] MEDS ORDERED: REME45TA2 PO (13:30)
[2020-02-04] MEDS ORDERED: ACETAMINOPHEN 500 MG TAB PO ONE (15:00)
[2020-02-04] MEDS ORDERED: BOOSTRIX/ADACEL VACCINE (DIPHTH/PERTUSS/ACELL/TETANUS) 0.5ML SYR IM ONE (15:00)
--- NOTE | 2020-02-04 16:01 | REP ---
Five views right knee: 02/04/2020. Indication: Right knee pain following injury. Comparison: None. Findings: There is no acute fracture, subluxation or dislocation. Joint space height is maintained. No lytic or blastic lesions are present. Impression: No acute fracture. Electronically Signed by Bryon Farris DO 02/04/2020 03:53 P
[2020-02-04 16:06] VITALS: BP 146/81
[2020-02-04] MEDS ORDERED: DOXY100C37 PO (16:31)
== END 2020-02-04 16:49 | disposition home or self-care (01) ==
LOC: M ED 13:22
DX: S01.81XA Laceration without foreign body of other part of head, initial encounter (principal); S80.01XA Contusion of right knee, initial encounter; Y04.0XXA Assault by unarmed brawl or fight, initial encounter; F90.9 Attention-deficit hyperactivity disorder, unspecified type; F31.9 Bipolar disorder, unspecified; F43.10 Post-traumatic stress disorder, unspecified; F17.200 Nicotine dependence, unspecified, uncomplicated; Z79.899 Other long term (current) drug therapy; Z88.0 Allergy status to penicillin; Z88.8 Allergy status to other drugs, medicaments and biological substances; Y92.9 Unspecified place or not applicable; Y93.9 Activity, unspecified; Y99.9 Unspecified external cause status

== ENCOUNTER → 2020-10-19 | Outpatient (REF) | payer OTHER ==
[~2020-10-19] MED LIST changes: +DOXY100C37 PO; +GABA-1171; +GABA-282 PO; -GABA-843 PO; +REME45TA2 PO
[2020-10-19 13:07] LABS: AMPHETAMINES URINE REFLEX NEGATIVE (NEGATIVE); BARBITURATES URINE REFLEX NEGATIVE (NEGATIVE); BENZODIAZEPINES URINE REFLEX NEGATIVE (NEGATIVE); COCAINE METABOLITE URINE REFLE NEGATIVE (NEGATIVE); OPIATES URINE REFLEX NEGATIVE (NEGATIVE); PHENCYCLIDINE URINE REFLEX NEGATIVE (NEGATIVE)
[2020-10-19 13:08] LABS: CANNABINOIDS URINE REFLEX PENDING CONFIRMATION (NEGATIVE); METHADONE URINE REFLEX PENDING CONFIRMATION (NEGATIVE)
[2020-10-23 08:10] LABS: Cannabinoid Positive (.); GC Carboxy THC 142 ng/mL (Cutoff=10); GC Methadone 735 ng/mL (Cutoff=100); Methadone Positive (.)
== END ==
LOC: M LAB REF 12:03
PROVIDERS: ATTEND Family Medicine Addiction Medicine
DX: Z91.89 Other specified personal risk factors, not elsewhere classified (principal)

== ENCOUNTER → 2021-01-10 | Outpatient (REF) | payer OTHER ==
[~2021-01-10] MED LIST changes: +GABA-283 PO; -GABA-845 PO
[2021-01-10 13:23] LABS: ALBUMIN 4.1 GM/DL (3.2-5.2); ALT/SGPT 20 U/L (12-78); BILIRUBIN,TOTAL 0.3 MG/DL (0.2-1.0); BLOOD UREA NITROGEN 10 MG/DL (7-18); CARBON DIOXIDE LEVEL 27 MEQ/L (21-32); CHLORIDE LEVEL 108 MEQ/L (98-107); CHOLESTEROL LEVEL 186 MG/DL (<200); CREATININE FOR GFR 0.83 MG/DL (0.70-1.30); GLOMERULAR FILTRATION RATE > 60.0 (>60); GLUCOSE, FASTING 106 MG/DL (70-100); HDL CHOLESTEROL 50 MG/DL (>40); LDL CHOLESTEROL 116 MG/DL (<100); NON-HDL-C 136 MG/DL; POTASSIUM SERUM 4.6 MEQ/L (3.5-5.1); SODIUM LEVEL 139 MEQ/L (136-145); THYROID STIMULATING HORMONE 0.876 uIU/ML (0.358-3.740); TOTAL PROTEIN 7.1 GM/DL (6.4-8.2); TRIGLYCERIDES LEVEL 100 MG/DL (<150)
[2021-01-10 14:34] LABS: HIV 1&2 SCREEN CENTAUR NEGATIVE (NEGATIVE)
== END ==
LOC: M LAB REF 11:27
PROVIDERS: ATTEND Family Medicine Addiction Medicine
DX: Z11.3 Encounter for screening for infections with a predominantly sexual mode of transmission (principal); E66.9 Obesity, unspecified; Z68.29 Body mass index [BMI] 29.0-29.9, adult

== ENCOUNTER → 2022-09-23 | Outpatient (REF) | payer OTHER ==
[~2022-09-23] MED LIST changes: +DOXY-443 PO; -DOXY100C37 PO
[2022-09-23 13:23] LABS: ALKALINE PHOSPHATASE 73 U/L (46-116); ALT/SGPT 30 U/L (7.0-40); AST/SGOT 22 U/L (<34); BILIRUBIN,TOTAL 0.5 MG/DL (0.3-1.2); BLOOD UREA NITROGEN 10 MG/DL (9-23); CALCIUM LEVEL 9.2 MG/DL (8.5-10.1); CARBON DIOXIDE LEVEL 28 MMOL/L (20-31); CHLORIDE LEVEL 105 MMOL/L (98-107); CHOLESTEROL LEVEL 208 MG/DL (<200); CREATININE FOR GFR 0.85 MG/DL (0.70-1.30); GLOMERULAR FILTRATION RATE > 60.0 (>60); GLUCOSE, FASTING 100 MG/DL (60-100); HDL CHOLESTEROL 44.2 MG/DL (>40); NON-HDL-C 164 MG/DL; POTASSIUM SERUM 4.5 MMOL/L (3.5-5.1); SODIUM LEVEL 139 MMOL/L (136-145); TOTAL PROTEIN 7.1 G/DL (5.7-8.2); TRIGLYCERIDES LEVEL 159 MG/DL (<150)
[2022-09-23 13:24] LABS: THYROID STIMULATING HORMONE 0.972 uIU/ML (0.55-4.78)
[2022-09-23 16:52] LABS: HIV 1&2 SCREEN CENTAUR NEGATIVE (NEGATIVE)
== END ==
LOC: M LAB REF 12:24
PROVIDERS: ATTEND Family Medicine Addiction Medicine
DX: E66.3 Overweight (principal)

== ENCOUNTER → 2023-01-26 | Outpatient (CLI) | payer OTHER | LOC: M SLEEP HO 10:27 | PROVIDERS: ATTEND Nurse Practitioner Family | DX: R06.83 Snoring (principal) ==

== ENCOUNTER → 2023-01-28 | Outpatient (REF) | payer OTHER ==
[2023-01-28 15:05] LABS: GC DNA AMPLIFICATION NEGATIVE (NEGATIVE)
[2023-01-28 17:21] LABS: BASO # 0.1 10^3/uL (0.0-0.2); BASO % 1.2 % (0.0-1.0); EOS # 0.1 10^3/uL (0.0-0.5); EOS % 1.1 % (0.0-3.0); HEMATOCRIT 45.1 % (42.0-52.0); HEMOGLOBIN 14.8 g/dl (13.5-17.5); LYMPH # 1.4 10^3/uL (1.5-5.0); LYMPH % 21.7 % (24.0-44.0); MEAN CORPUSCULAR HEMOGLOBIN 29.7 pg (27.0-33.0); MEAN CORPUSCULAR HGB CONC 32.8 g/dl (32.0-36.5); MEAN CORPUSCULAR VOLUME 90.6 fl (80.0-96.0); MONO # 0.6 10^3/uL (0.0-0.8); MONO % 9.4 % (2.0-8.0); NEUTROPHILS # 4.4 10^3/uL (1.5-8.5); NEUTROPHILS % 66.1 % (36.0-66.0); PLATELET COUNT, AUTOMATED 313 10^3/uL (150-450); RED BLOOD COUNT 4.98 10^6/uL (4.30-6.10); WHITE BLOOD COUNT 6.6 10^3/uL (4.0-10.0)
[2023-01-28 18:21] LABS: HEPATITIS C VIRUS ABY INDEX 0.1 INDEX (<0.8)
== END ==
LOC: M LAB REF 12:29
PROVIDERS: ATTEND Family Medicine Addiction Medicine
DX: Z11.3 Encounter for screening for infections with a predominantly sexual mode of transmission (principal); R53.83 Other fatigue